=== PATIENT | female | born 1940 | race Caucasian/White ===

== ENCOUNTER → 2017-10-30 08:41 | Outpatient (CLI) | payer MEDICARE, OTHER, SELFPAY ==
--- NOTE | 2017-10-30 08:51 | US_ITS ---
US abdomen limited HISTORY: ORDERING PHYSICIAN: Annette Khan PATIENT AGE: 77 years Comparison: None TECHNIQUE ultrasound right upper quadrant COMPARISON. CT abdomen pelvis 07/12/2016 which previously showed aneurysmal dilatation of lower abdominal aorta. Up to 4.2 cm FINDINGS Pancreas unremarkable. Liver. No significant focal lesion. Some subtle areas of fatty infiltration suggested No biliary ductal dilatation.. Portal vein normal Common duct normal diameter 2.5 mm at hilum of liver. . Gallbladder surgically absent Right kidney. Appears normal 9.4 cm in length. The cortex well-maintained with no hydronephrosis nor mass IMPRESSION 1. Gallbladder surgically absent. Common duct normal diameter. Liver. No significant findings. Perhaps areas of subtle fatty changes Pancreas and Right Kidney unremarkable
== END ==
PROVIDERS: Family Provider Family Medicine; PCP Family Medicine; Visit Provider Nurse Practitioner
DX: R74.8 Abnormal levels of other serum enzymes (principal)
CPT/HCPCS: 76705

== ENCOUNTER → 2017-12-09 13:42 | Outpatient (POV) | payer MEDICARE, OTHER, SELFPAY ==
[2017-12-09 14:48] LABS: Basophils # 0.1 K/mm3 (0-0.2); Basophils % 0.9 % (0.1-2.0); Eosinophils # 0.1 K/mm3 (0.0-0.4); Eosinophils % 1.9 % (0.1-12.0); Hematocrit 34.5 % (37.0-47.0); Hemoglobin 10.8 g/dL (12.2-16.2); Lymphocytes # 2.1 K/mm3 (0.7-4.5); Lymphocytes % 28.9 K/mm3 (10-50); Mean Corpuscular HGB Conc 31.3 g/dL (31.8-35.4); Mean Corpuscular Hemoglobin 26.3 pg (27.0-31.2); Mean Corpuscular Volume 83.9 fl (81-99); Mean Platelet Volume 7.4 fl (7.4-10.4); Monocytes # 0.4 K/mm3 (0.1-1.0); Monocytes % 4.9 % (1.7-9.3); Neutrophils # 4.7 K/mm3 (1.8-7.8); Neutrophils % 63.4 % (37.0-80.0); Platelet Count 396 K/mm3 (142-424); Red Blood Count 4.12 M/mm3 (4.20-5.40); Red Cell Distribution Width 16.9 % (11.5-17.5); White Blood Count 7.5 K/mm3 (4.8-10.8)
[2017-12-09 17:57] LABS: Alanine Aminotransferase 14 U/L (12-78); Albumin Level 3.3 gm/dL (3.4-5.0); Albumin/Globulin Ratio 0.8 (1.1-1.8); Alkaline Phosphatase 119 U/L (46-116); Anion Gap 14.7 mEq/L (5-15); Aspartate Amino Transferase 13 U/L (15-37); Bilirubin,Total 0.4 mg/dL (0.2-1.0); Blood Urea Nitrogen 14 mg/dL (7-18); Calcium 8.9 mg/dL (8.5-10.1); Carbon Dioxide 28 mmol/L (21.0-32.0); Chloride 101 mmol/L (98-107); Creatinine,Serum 0.98 mg/dL (0.55-1.02); Estimated Glomerular Filt Rate 55 ml/min (>60); Ferritin 21 ng/mL (8-388); GFR (African American) 67 ML/MIN (>60); Potassium 3.7 mmoL/L (3.5-5.1); Sodium 140 mmol/L (136-145); Total Protein,Serum 7.3 gm/dL (6.4-8.2)
[2017-12-09 18:17] LABS: Glucose 143 mg/dL (74-106)
[2017-12-11 09:17] LABS: Iron 54 ug/dL (27-139); UIBC 338 ug/dL (118-369)
[2017-12-11 11:33] LABS: Iron Saturation 14 % (15-55); Vitamin B12 279 pg/mL (232-1245); Vitamin D 25 Hydroxy 35.1 ng/mL (30.0-100.0)
== END ==
PROVIDERS: Visit Provider Nurse Practitioner Acute Care
DX: R74.8 Abnormal levels of other serum enzymes (principal); D64.9 Anemia, unspecified
CPT/HCPCS: 36415; 80053; 82607; 82652; 82728; 83540; 83550; 85025

== ENCOUNTER → 2018-01-06 16:53 | Outpatient (CLI) | payer MEDICARE, OTHER, SELFPAY ==
--- NOTE | 2018-01-06 16:56 | MR_ITS ---
MR head/brain wo con Ordering Physician: Annette Khan Patient Age: 77 years: Female HISTORY: ITS.REASON: OTHER VASCULAR HEADACHE, MULTIPLE FALLS Dizziness and falls since Saturday. Severe headache. Pain both sides of head but mainly on right. Sore to touch. HISTORY of neck and back pain. TECHNIQUE: MRI the brain without contrast : Precontrast Multiplanar FLAIR, T1, T2 weighted images along with axial diffusion/ADC imaging performed on 1.5 T. Siemens, MRI. Additional T2*heme sensitive axial sequences also performed COMPARISON :MR brain from October 2010 FINDINGS . Numerous scattered areas abnormal diffusion signal involving peripheral gyri/cortical areas posterior watershed region/posterior right cerebral hemisphere . Findings suggest scattered foci of peripheral cortical ischemia and/or infarct..-. Most likely small peripheral cortical watershed infarcts here. I would note that there is less evident decreased signal on ADC map than I would like to be definitive regarding infarct, thus possibly could reflect ischemia, question possible reversible ischemia or unlikely some other process... A follow-up MRI with brain with contrast to determine the ventral pattern and to further up evaluate may be helpful. These scattered abnormal diffusion foci involve the parietal/occipital region, & temporoparietal junction as well as areas seen extending towards right occipital lobe.. (Diffusion axial image 12-17 ).. Also a single separate area superiorly towards posterior parietal lobe. Axial image 21 Findings reflect reflect numerous small peripheral areas of ischemia/infarcts-rather than a large territorial infarct. Thus as stated with this somewhat unusual pattern suspect watershed type ischemic process affecting the posterior right cerebral hemisphere..... Doubt Embolic foci Possible Reversible Cerebral Basal Vasoconstrictive Syndrome/Migrainous regional Vasospasm considered, particularly given history onset of symptoms with severe headache, along with scalp tenderness overlying this area.. Consider neurology consult. Also the lack of low signal on the ADC may reflect reversible ischemia rather than completed infarct. No acute blood evident on the blood sensitive sequen ... Also note underlying Prominent chronic small vessel deep white matter ischemic gliotic changes cerebral hemispheres bilaterally, which have progressed since 2010. Prominent and fairly confluently white matter high signal is seen surrounding the lateral ventricles, along with with an numerous scattered periventricular and prominent subcortical deep white matter high signal features. These reflect chronic small vessel deep white matter ischemic gliotic changes.. Most prominent confluent signal is seen surrounding the atria of the lateral ventricles.... Also note High signal throughout central leo which likely reflects the small vessel deep white matter ischemic gliotic changes . ... Otherwise Cerebellar hemispheres unremarkable CP angles clear cranial nerve VII and VIII unremarkable IACs unremarkable. No subdural nor extra-axial collection.. No mass effect supratentorial nor infratentorial Paranasal sinuses: Opacification left maxillary sinus with possible large retention cyst here as well. Right maxillary sinus clear.. Opacification of a few, anterior right ethmoid air cells. Noted otherwise paranasal sinuses clear. Orbits unremarkable. Mastoid air cells well-developed. No significant findings . Scalp and skull unremarkable. -----IMPRESSION------- 1.1 . Numerous scattered peripheral cortical diffusion signal foci,. Compatible with numerous areas of cortical infarct and ischemia involving posterior watershed region right cerebral hemisphere... Suggest neurology consultation given this somewhat unusual pattern. Patient m
== END ==
PROVIDERS: PCP Nurse Practitioner; Visit Provider Nurse Practitioner
DX: G44.1 Vascular headache, not elsewhere classified (principal); R29.6 Repeated falls
CPT/HCPCS: 70551

== ENCOUNTER → 2018-01-10 09:01 | Outpatient (CLI) | payer MEDICARE, OTHER, SELFPAY ==
--- NOTE | 2018-01-10 | CI_ITS ---
Cerebrovascular Exam Indications: 434.91 Cerebral artery occlusion unspecified with cerebral infarction. IMPRESSIONS 1. The bilateral vertebral arteries are patent with normal antegrade flow. 2. Study suggests less than 20% stenosis involving the right internal carotid artery and the left internal carotid artery. History: Risk factors: Current tobacco use. Hypertension. Carotid duplex study. Complete study and Doppler flow study including spectral analysis, color and barnes scale imaging. Location: Vascular laboratory. Patient status: Outpatient. Tables: Arterial flow: + +--------+--------+ Location V sys V ed + +--------+--------+ Right CCA - proximal 55cm/s 13.1cm/s + +--------+--------+ Right CCA - distal 61.6cm/s 18.3cm/s + +--------+--------+ Right ECA 95.2cm/s -------- + +--------+--------+ Right ICA - proximal 71.2cm/s 19.2cm/s + +--------+--------+ Right ICA - mid 65.3cm/s 23.6cm/s + +--------+--------+ Right ICA - distal 119cm/s 38.3cm/s + +--------+--------+ Right vertebral 40.9cm/s -------- + +--------+--------+ Left CCA - proximal 67.3cm/s 20.7cm/s + +--------+--------+ Left CCA - distal 60.3cm/s 16.3cm/s + +--------+--------+ Left ECA 76.1cm/s -------- + +--------+--------+ Left ICA - proximal 67.3cm/s 15.7cm/s + +--------+--------+ Left ICA - mid 77.9cm/s 27cm/s + +--------+--------+ Left ICA - distal 86.1cm/s 20cm/s + +--------+--------+ Left vertebral 34.2cm/s -------- + +--------+--------+ Velocity ratios: + + + + + + Right, V sys Right, V ed Left, V sys Left, V ed + + + + + + Max ICA/dist CCA 1.93 2.09 1.43 1.66 + + + + + + (Report amended ) Electronically signed by: Cl Maxwell [id number]
--- NOTE | 2018-01-10 | CA_ITS ---
PROCEDURE: 2-D M-mode and color Doppler study INDICATIONS FOR THE TEST: Chest pain COPD+ Heart Murmur Tobacco Smoking+ Palpitations+ Fatigue Syncope Edema Hypertension Diabetes MellitusPRE Rheumatic Fever SOB BIGGS+Obesity Hyperlipidemia Family History HD Additional History hx of aortic aneurysm PATIENT INFORMATION HEIGHT: 67 WEIGHT: 138 GENDER: Female B/P: 132/84 2-D/M-MODE INTERPRETATION: 2-D MEASUREMENTS OBSERVED VALUES IN CMS Right Ventricular Dimension (RVDd) 2.8 Interventricular Septum (Thickness)(IVsd) 1.3 Left Ventricular Internal Dimensions(LVIDd) 3.7 Left Ventricular Posterior Wall (Thickness)(LVPWd) 1.3 Aortic Root 2.5 Aortic Cusp Separation 2.0 Left Atrial Dimensions (LAD) 2.3 2D 1. Left atrium is mildly enlarged, left ventricle is normal size, mild concentric left ventricular hypertrophy, visually estimated ejection fraction of 55% with no regional wall motion abnormality. 2. The right atrium and right ventricle are normal size and contractility. 3. The aortic valve is minimally thickened and fibrosed, the aortic root is normal size, ascending aorta is not well visualized. 4. The mitral and tricuspid valvular grossly normal. 5. The pulmonic valve is poorly visualized. 6. No significant pericardial effusion noted. DOPPLER INTERROGATION: Doppler interrogation of the aortic, mitral and tricuspid valvular presence of mild mitral and tricuspid regurgitation, tricuspid regurgitation jet velocity is inadequate for calculation of the right ventricular systolic pressure, grade 1 diastolic dysfunction seen with tissue Doppler evidence of raised left atrial pressure. CONCLUSION: 1. Mildly enlarged left atrium, normal left ventricular size, mild concentric left ventricular hypertrophy, visually estimated ejection fraction of 55% with no regional wall motion abnormality, grade 1 diastolic dysfunction seen with tissue Doppler evidence of raised left atrial pressure. 2. Mild mitral and tricuspid regurgitation 3. No significant pericardial effusion noted.
== END ==
PROVIDERS: PCP Family Medicine; Visit Provider Nurse Practitioner
DX: R00.2 Palpitations (principal); R20.2 Paresthesia of skin; I63.81 Other cerebral infarction due to occlusion or stenosis of small artery; R29.6 Repeated falls
CPT/HCPCS: 93306; 93880

== ENCOUNTER → 2018-01-15 09:05 | Outpatient (CLI) | payer MEDICARE, OTHER, SELFPAY ==
--- NOTE | 2018-01-15 09:21 | MR_ITS ---
MR head/brain wo/w con HISTORY: Headaches with dizziness, severe headaches worse on the right side, follow-up abnormal MRI of 01/06/2018. ITS.REASON: TINGLING SENSATION, MULTIPLE FALLS, OTHER CEREBRAL INFARCTION ORDERING PHYSICIAN: Annette Khan PATIENT AGE: 77 years Comparison: None TECHNIQUE: Standard multiplanar multiecho sequences are performed without and with gadolinium enhancement. There is no midline shift or obvious intracranial hemorrhage. Diffuse periventricular and subcortical T2 white matter hyperintensities are once again noted. Previously there were diffusion abnormalities in the right parietal and occipital lobe. These are no longer apparent. Some of these region showed slight decrease ADC signal which now shows some increase signal intensity consistent with subacute infarction. There is however a new area of restricted diffusion involving the medial aspect of the right temporal lobe as seen on series 3.2, image #38 consistent with a small area of acute infarction measuring approximately 14 x 5 mm. Increased T2 signal within the right parieto-occipital lobe in the cortical region as previously described as showing improvement. There is some gyriform enhancement within these areas. This is consistent with subacute infarction with breakdown of blood-brain barrier. No hydrocephalus. The pituitary abdomen unremarkable appearance. There is increased T2 signal in the leo consistent with ischemic gliotic change from microvascular disease. In the upper cervical cord there is severe degenerative disc disease at C3-C4 with 6 mm anterolisthesis of C3. Canal stenosis is present at the superior C4 region at 5 mm with cord compression. IMPRESSION: 1. Overall, the pattern in the right parietal occipital lobe is consistent with watershed infarct evolution. 2. There is a new small area of infarction involving the medial aspect of the right temporal lobe. 3. Extensive white matter changes consistent with ischemic gliotic change from microvascular disease. 4. Severe degenerative disc disease with 6 mm anterolisthesis of C3 on C4 with canal stenosis and mild cord compression. MRI of the cervical spine may provide further evaluation
[2018-01-15 09:27] LABS: Blood Urea Nitrogen 12 mg/dL (7-18); Creatinine,Serum 0.84 mg/dL (0.55-1.02); Estimated Glomerular Filt Rate 66 ml/min (>60); GFR (African American) 80 ML/MIN (>60)
== END ==
PROVIDERS: PCP Nurse Practitioner; Visit Provider Nurse Practitioner
DX: I63.81 Other cerebral infarction due to occlusion or stenosis of small artery (principal); R20.2 Paresthesia of skin; R29.6 Repeated falls; I63.9 Cerebral infarction, unspecified
CPT/HCPCS: 36415; 70553; 82565; 84520; A9576

== ENCOUNTER → 2018-10-16 08:07 | Outpatient (CLI) | payer MEDICARE, OTHER, SELFPAY ==
--- NOTE | 2018-10-16 08:11 | MR_ITS ---
MR head/brain wo con HISTORY: ITS.REASON: MULTIPLE FALLS, DIZZINESS, HX OF STROKE, TIAs, headache ORDERING PHYSICIAN: Annette Khan APRN PATIENT AGE: 78 years Comparison: 01/15/2018 TECHNIQUE: Standard multiplanar multiecho sequences are performed without contrast. FINDINGS: No midline shift, mass effect, intracranial hemorrhage, or hydrocephalus is evident. There is moderate to severe periventricular and subcortical T2 white matter hyperintensity consistent with ischemic gliotic change from microvascular disease. No acute infarction is evident.. The T2 white matter hyperintensity has somewhat progressed since the previous exam. Encephalomalacic changes also developed in the right occipital lobe consistent with an area of old infarction which has also developed since the previous exam. T2 white matter hyperintensity noted within the leo also is consistent with ischemic gliotic change. The cerebellopontine angle, cerebellum, and brainstem are unremarkable. Left maxillary sinus retention cyst is present at 3 cm. There is some fluid within right mastoid sinus. There is a partially empty sella. The optic high as and was unremarkable. There is thinning of the corpus callosum. Images of the cranial cervical junction show canal stenosis in the upper cervical spine with anterolisthesis of C3 on C4. This was better demonstrated on the previous exam and only barely visible on today's study due to the positioning. IMPRESSION: 1. Extensive white matter changes consistent with ischemic gliotic change from microvascular disease which has progressed since the previous exam. 2. Encephalomalacia changes in the right occipital lobe consistent with an old area of infarction. No acute infarction apparent 3. Canal stenosis in the upper cervical spine
== END ==
PROVIDERS: PCP Nurse Practitioner; Visit Provider Nurse Practitioner
DX: R29.6 Repeated falls (principal); R42 Dizziness and giddiness; Z86.73 Personal history of transient ischemic attack (TIA), and cerebral infarction without residual deficits
CPT/HCPCS: 70551

== ENCOUNTER 2018-11-28 10:19 | Inpatient (IN) ==
--- NOTE | 2018-11-28 10:32 | Emergency Department Note ---
ED Disposition Clinical Impression: Anemia Qualifiers: Anemia type: unspecified type Qualified Code(s): D64.9 - Anemia, unspecified Disposition: Admitted as Observation Condition on Discharge: Fair Referrals: Provider,Referral, [Referring] - - Critical Care Critical Care Time: No Attestation: On , the high probability of a clinically significant, sudden or life threatening deterioration of the following system(s) required my full and direct attention, intervention and personal management. The time I documented below is in addition to time spent performing reported procedures but includes the following listed in this critical care notation. Medical Decision Making - Tani Inquiry Pt receiving controlled substance: No Vital Signs: 11/28/18 10:32 11/28/18 10:48 Temperature 98.4 F Temperature Source Oral Pulse Rate [Left Radial] 94 H 88 Respiratory Rate 20 Blood Pressure [Right Arm] 120/78 133/75 Blood Pressure Mean [Right Arm] 92 94 Blood Pressure Source [Right Arm] Automatic Cuff Automatic Cuff Blood Pressure Position [Right Arm] Sitting Sitting 02 Sat by Pulse Oximetry 97 96 Oxygen Delivery Method Room Air Room Air - Lab Data Lab Results 11/28/18 10:00: WBC 11.0 H, RBC 3.87 L, Hgb 7.4 L*, Hct 27.8 L, MCV 71.8 L, MCH 19.0 L, MCHC 26.5 L, RDW 19.4 H, Plt Count 475 H, MPV 7.8, Neut % (Auto) 70.1, Lymph % (Auto) 25.4, [place] % (Auto) 3.8, Eos % (Auto) 0.3, Baso % (Auto) 0.4, Neut # (Auto) 7.7, Lymph # (Auto) 2.8, [place] # (Auto) 0.4, Eos # (Auto) 0.0, Baso # (Auto) 0.0 11/28/18 10:00: Sodium 140, Potassium 4.1, Chloride 100, Carbon Dioxide 31, Anion Gap 13.1, BUN 22 H, Creatinine 0.99, Estimated Creat Clear 51, Estimated GFR 54 L, Est GFR ( Amer) 66, Glucose 123 H, Calcium 8.9, Total Bilirubin 0.4, AST 16, ALT 14, Alkaline Phosphatase 111, Troponin I < 0.02, Total Protein 6.6, Albumin 2.7 L, Globulin 3.9 H, Albumin/Globulin Ratio 0.7 L 11/28/18 10:00: Lipase 80 11/28/18 10:30: Urine Color Yellow, Urine Appearance Clear, Urine pH 6.5, Ur Specific [place] 1.015, Urine Protein Trace, Urine Glucose (UA) Negative, Urine Ketones Negative, Urine Blood Negative, Urine Nitrate Negative, Urine Bilirubin Negative, Urine Urobilinogen 0.2, Ur Leukocyte Esterase Negative, Urine RBC Occasional, Urine WBC Occasional, Ur Squamous Epith Cells 5-10, Urine Bacteria Trace, Urine Mucus 1+ 11/28/18 11:02: Lactate 1.4 11/28/18 11:05: Stool Occult Blood Negative 11/28/18 11:15: Blood Type A Positive, Antibody Screen Negative Result diagrams: 11/28/18 10:00 11/28/18 10:00 Orders (Tests/Meds): ED MEDICATIONS Discontinued Medications Generic Name Dose Route Start Last Admin Trade Name Freq PRN Reason Stop Dose Admin Ioversol 75 ml 11/28/18 12:27 11/28/18 12:28 Rad-Optiray 350 100ml Vial IV 11/28/18 12:28 75 ml ONCE ONE Administration Protocol Sodium Chloride 10 ml 11/28/18 12:27 11/28/18 12:28 Rad-Saline Flush 10ml Syringe IV 11/28/18 12:28 10 ml ONCE ONE Administration ORDERS Category Date Time Status Ferritin Stat Lab 11/28/18 13:21 Ordered Reticulocyte % (Auto) Stat Lab 11/28/18 13:22 Ordered Blood Culture Stat Micro 11/28/18 10:42 Received - Radiology Data #1 Image(s): Chest Image Reviewed: Yes I have reviewed radiologist's interpretation COPD - CT Data CT Scan: Abdomen, Pelvis Time Received: 13:[address] Reviewed: Yes: I have viewed the radiologist's interpretation Findings Narrative: IMPRESSION: Interval increase in size of the infrarenal aortic aneurysm with no evidence of leakage. Moderate diffuse diverticular lower descending and sigmoid colon without evidence of diverticulitis. There is no evidence of renal or ureteral calculi and there is no obstructive uropathy of either kidney. Dictated by: Dr. Juancarlos Vu MD 11/28/2018 12:[address] Juancarlos Vu MD in [place] 11/28/2018 12:57 - ECG Data Tracing #1 EKG interpreted by Usman Brown MD: Rhythm: sinus Rate: 95 [place]: normal Ectopy: none Conduction: normal ST Segment Changes: none T Wave Changes: none Q Waves: none No evidence of acute ischemia or injury - Physician Consults Physician Consulted: Hesham Time: 13:23 Reason -: Admission Comment/Response: In agrees to admit the patient to the hospital. We discussed the patient's clinical information, including history, exam, laboratory and radiology results and ED course. Per hospital procedure, I will write temporary bridge inpatient orders on the patient. Specific orders requested by the admitting physician: Iron studies, transfuse 2 units packed red blood cells Medical Decision Narrative: Prior imaging of AAA: CT IMPRESSION: 1. Diffuse thickening of the wall the stomach which may be seen with gastritis. Neoplasm not entirely excluded. 2. Prominent diverticulum of the head of the pancreas. 3. 4 x 3.5 cm fusiform infrarenal abdominal aortic aneurysm with small saccular component anteriorly. 4. Diverticulosis of the colon without diverticulitis. 5. Other nonacute findings as described above. <Electronically signed by Cl Maxwell MD in [place]> 07/19/16 0924 BONAL / PS AT 1708 US IMPRESSION: Abdominal aortic aneurysm. measures up to maximum of 3.6 cm AP x 3.25 cm wide on today's study. It extends for less than 5 cm in length. Appears Most likely infrarenal <Electronically signed by Neo Aquino MD in [place]> 10/11/15 0749 CRUDO / PS AT 0649 AT 074 CTA head/neck at 03/26/18 negative General Adult HPI - General Chief complaint: Urogenital-Female Stated complaint: Possible UTI Time Seen by Provider: 11/28/18 10:31 - History of Present Illness HPI narrative: Arrives by ambulance. Has multiple complaints. She says she believes she has a urinary tract infection. She has dysuria. 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 States that this began yesterday. She also says that she has been vomiting since yesterday, vomited all night she does not know whether she has had a fever. She says that she gets intermittent sweats for the past couple of weeks. She has chronic abdominal pain for about 10 months. She says she is supposed to see Dr. Bradley. Supposed to have an upper and lower scope in 1 wk. She says that the pain has been constant for the past 2 weeks. Denies diarrhea. Has a history of a AAA. States that she had swelling of her right foot last week. She says that her primary care provider, Vania Harrison put her on one half of a hydrochlorothiazide. It has markedly improved. She has COPD and is chronically short of breath. - Related Data Home Medications Medication Instructions Recorded Confirmed Albuterol Sulfate [Albuterol HFA 1 puff INHALATION Q4-6H PRN 11/28/18 11/28/18 Inhaler] Atenolol [Atenolol 100mg Tab] 100 mg PO DAILY 11/28/18 11/28/18 Duloxetine HCl [Cymbalta] 60 mg PO DAILY 11/28/18 11/28/18 Pantoprazole Sodium [Pantoprazole 20 mg PO DAILY 11/28/18 11/28/18 20mg Tab] dilTIAZem HCl [Diltiazem 60mg 60 mg PO DAILY 11/28/18 11/28/18 12Hr ER Cap] hydroCHLOROthiazide [HCTZ 25mg 25 mg PO DAILY 11/28/18 11/28/18 tab] Allergies Allergy/AdvReac Type Severity Reaction Status Date / Time codeine [CODEINE] Allergy Mild Verified 11/28/18 10:44 morphine [MORPHINE] Allergy Mild Verified 11/28/18 10:44 [facility] History - Hepatitis A Screen Attestation statement:: This patient has been screened for Hepatitis A risk factors. I have reviewed the patient's past medical history: Yes ROS Obtained: Yes All systems reviewed & no additional complaints - Constitutional Constitutional: Reports excessive sweating, Reports weakness - Cardiovascular Cardiovascular: Denies chest pain - Respiratory Respiratory: No cough, Yes dyspnea - Gastrointestinal Gastrointestingal: Reports: abdominal pain, nausea, vomiting. Denies: diarrhea - Genitourinary Female Genitourinary: Reports dysuria - Neurologic Neurologic: Denies headache(s) Physical Exam - General General appearance: alert, in no apparent distress Comment: purse-lipped breathing - Head Head exam: atraumatic, normocephalic - Eye Eye exam: Present: normal appearance, EOMI - ENT ENT exam: Present: mucous membranes moist - Neck Neck exam: Present: normal inspection, trachea midline - Chest Chest inspection: Present: normal inspection, symmetric chest wall rise - Respiratory Respiratory exam: Present: normal lung sounds bilaterally. Absent: respiratory distress - Cardiovascular Cardiovascular exam: Present: regular rate, normal rhythm, normal heart sounds - Abdominal Exam Abdominal exam: Present: soft, tenderness, normal bowel sounds. Absent: distention, guarding, rebound, rigidity Abdominal tenderness: Present: diffuse, mild Comment: RUQ scar. - Rectal Exam Rectal exam: Present: hemorrhoids (external). Absent: black stool, bloody stool, fecal impaction, mass, tenderness - Extremities Exam Extremities exam: Present: other - Neurological Exam Neurological exam: Present: alert, oriented X3, CN II-XII intact. Absent: motor sensory deficit - Psychiatric Psychiatric exam: Present: normal affect, normal mood - Skin Skin exam: Present: warm, dry - Other Other exam information: minimal edema right foot. hyperemia and cyanosis right foot at toes and heel. minimal cyanosis of left toes. normal pedal pulses. patient states appearance of toes is not a new finding, comes and goes.
[2018-11-28 11:00] LABS: Basophils % 0.4 % (0.1-2.0); Eosinophils % 0.3 % (0.1-12.0); Hematocrit 27.8 % (37.0-47.0); Lymphocytes # 2.8 K/mm3 (0.7-4.5); Lymphocytes % 25.4 % (10-50); Mean Corpuscular HGB Conc 26.5 g/dL (31.8-35.4); Mean Corpuscular Volume 71.8 fl (81-99); Mean Platelet Volume 7.8 fl (7.4-10.4); Monocytes # 0.4 K/mm3 (0.1-1.0); Monocytes % 3.8 % (1.7-9.3); Neutrophils # 7.7 K/mm3 (1.8-7.8); Neutrophils % 70.1 % (37.0-80.0); Platelet Count 475 K/mm3 (142-424); Red Blood Count 3.87 M/mm3 (4.20-5.40); Red Cell Distribution Width 19.4 % (11.5-17.5)
[2018-11-28 11:02] LABS: Hemoglobin 7.4 g/dL (12.2-16.2)
[2018-11-28 11:05] LABS: Microscopic, Urine URINE MICROSCOPIC (MICROSCOPIC)
[2018-11-28 11:06] LABS: Appearance,Urine CLEAR (Clear); Bilirubin,Urine Negative (Negative); Blood, Urine Negative (Negative); Color,Urine YELLOW (Yellow); Glucose,Urine (UA) Negative (Negative); Ketones,Urine Negative (Negative); Leukocyte Esterase,Urine Negative (Negative); PH,Urine 6.5 (5.0-8.5); Protein,Urine TRACE (Negative); Specific Gravity, Urine 1.015 (1.005-1.030); Urobilinogen,Urine 0.2 EU/dl (0.2)
[2018-11-28 11:07] LABS: Alanine Aminotransferase 14 U/L (12-78); Albumin Level 2.7 gm/dL (3.4-5.0); Albumin/Globulin Ratio 0.7 (1.1-1.8); Alkaline Phosphatase 111 U/L (46-116); Anion Gap 13.1 mEq/L (5-15); Aspartate Amino Transferase 16 U/L (15-37); Bilirubin,Total 0.4 mg/dL (0.2-1.0); Blood Urea Nitrogen 22 mg/dL (7-18); Calcium 8.9 mg/dL (8.5-10.1); Carbon Dioxide 31 mmol/L (21.0-32.0); Chloride 100 mmol/L (98-107); Globulin 3.9 gm/dl (1.3-3.2); Glucose 123 mg/dL (74-106); Sodium 140 mmol/L (136-145); Total Protein,Serum 6.6 gm/dL (6.4-8.2)
[2018-11-28 11:11] LABS: RBC,Urine Occasional #/hpf (0-3); WBC,Urine Occasional #/hpf (0-3)
[2018-11-28 11:12] LABS: Bacteria,Urine Trace /lpf; Mucus,Urine 1+ /lpf
--- NOTE | 2018-11-28 14:25 | Pharmacy Consult Notes ---
[facility] Pharmacy VTE Monitoring - Patient Demographics Admission date: 11/28/18 Report Date: 11/28/18 Time: 14:25 Allergies/Adverse Reactions: Patient Allergies codeine [CODEINE] Allergy (Mild, Verified 11/28/18 10:44) morphine [MORPHINE] Allergy (Mild, Verified 11/28/18 10:44) Height: 1.6 m Weight: 68.039 kg Patient Problems: Current Active Problems Anemia (Acute) - VTE Risk Labs: VTE Related Lab Results Hgb 7.4 g/dL (12.2-16.2) L* 11/28/18 10:00 Hct 27.8 % (37.0-47.0) L 11/28/18 10:00 Plt Count 475 K/mm3 (142-424) H 11/28/18 10:00 BUN 22 mg/dL (7-18) H 11/28/18 10:00 Creatinine 0.99 mg/dL (0.55-1.02) 11/28/18 10:00 Estimated Creat Clear 51 mL/min (50-200) 11/28/18 10:00 - Prophylaxis VTE Prophylaxis Ordered?: Yes Types of VTE Prophylaxis: TEDS Knee High Location of Applied Device: Bilateral Lower Extremeties - VTE Diagnosis Confirmed Treatment or plan recommended: Continue Current Treatment
--- NOTE | 2018-11-28 17:16 | History & Physical Report ---
*Admission Date: 11/28/18 *Chief complaint: Weakness *History of present illness: 78-year-old female presented to the emergency department today with a less than 24-hour history of illness that began with onset of vomiting. Patient admits emesis was black but blames this on the fact that she had spinach for a prior meal. This morning upon awakening she was too weak to get out of bed. Her daughter became concerned and contacted my office and was advised to call EMS to bring her mother to the emergency department. In the emergency department patient underwent work-up and evaluation. In the past she has been weak like this when she had a urinary tract infection. Urine was not significantly abnormal but patient was found to be anemic with a hemoglobin of 7.4. MCV was microcytic. Patient has apparently been scheduled for an outpatient GI work-up with endoscopy and colonoscopy scheduled for December 08. Decision was made to admit the patient and transfused 2 units of packed red blood cells. The only comparable prior hemoglobin was from 1 year ago when her hemoglobin was above 10 patient denies melena or hematochezia but admits to an orange discoloration of her stools. [facility] History I have reviewed the patient's past medical history: Yes Medical History: Reports:: Aneurysm, Arrhythmia, Hypertension Denies:: Diabetes Mellitus Type 1, Diabetes Mellitus Type 2 *Have you ever received a pneumonia vaccine?: Yes *Have you received a flu vaccine this season?: No Other Medical History: Reports: Anemia, Cataracts Other Surgeries: Yes: Cholecystectomy, Other - *Social History Educational Level: Completed Grade School Smoking Status: Current every day smoker Tobacco Type: cigarettes # Packs/Day (cigarettes): 1 Alcohol Intake: never *Occupational Status:: retired Household Members: children *Travel in the last 8 weeks: None Family Hx:: No significant family history Review of Systems - Constitutional Reports lack of energy, Reports malaise - *Cardiovascular Denies chest pain, Denies chest pain at rest - *Respiratory Denies cough, Denies shortness of breath - *Gastrointestinal Reports abdominal pain, Reports change in stools, Denies belching, Denies bloating - *Neurologic Reports weakness, Denies headache(s) Meds Home Medications Medication Instructions Recorded Confirmed Type Albuterol Sulfate [Albuterol HFA 1 puff INHALATION Q6HP PRN 11/28/18 11/28/18 History Inhaler] Aspirin [Aspirin 81mg EC Tab] 81 mg PO DAILY 11/28/18 11/28/18 History Atenolol [Atenolol 100mg Tab] 200 mg PO DAILY 11/28/18 11/28/18 History Colchicine 0.6 mg PO DAILY 11/28/18 11/28/18 History Duloxetine HCl [Cymbalta] 120 mg PO DAILY 11/28/18 11/28/18 History Gabapentin 1,200 mg PO TID 11/28/18 11/28/18 History Metoclopramide HCl [Metoclopramide 10 mg PO AC 11/28/18 11/28/18 History 10mg Tablet] Omeprazole [Omeprazole 40mg 40 mg PO DAILY 11/28/18 11/28/18 History Capsule] Roflumilast [Daliresp] 500 mcg PO DAILY 11/28/18 11/28/18 History dilTIAZem HCl [Diltiazem 60mg 60 mg PO BID 11/28/18 11/28/18 History 12Hr ER Cap] hydroCHLOROthiazide [HCTZ 25mg 0.5 tab PO DAILY 11/28/18 11/28/18 History tab] predniSONE [Deltasone 20mg 20 mg PO BID 11/28/18 11/28/18 History tablet] Allergies Allergy/AdvReac Type Severity Reaction Status Date / Time codeine [CODEINE] Allergy Mild Verified 11/28/18 10:44 morphine [MORPHINE] Allergy Mild Verified 11/28/18 10:44 Exam Vital signs and Labs for Last 24 Hours: Temp Pulse Resp BP Pulse Ox 98.2 F 78 24 164/65 H 96 11/28/18 16:40 11/28/18 16:40 11/28/18 16:40 11/28/18 16:40 11/28/18 16:40 Laboratory Results - last 24 hr 11/28/18 10:00: WBC 11.0 H, RBC 3.87 L, Hgb 7.4 L*, Hct 27.8 L, MCV 71.8 L, MCH 19.0 L, MCHC 26.5 L, RDW 19.4 H, Plt Count 475 H, MPV 7.8, Neut % (Auto) 70.1, Lymph % (Auto) 25.4, [place] % (Auto) 3.8, Eos % (Auto) 0.3, Baso % (Auto) 0.4, Neut # (Auto) 7.7, Lymph # (Auto) 2.8, [place] # (Auto) 0.4, Eos # (Auto) 0.0, Baso # (Auto) 0.0 11/28/18 10:00: Sodium 140, Potassium 4.1, Chloride 100, Carbon Dioxide 31, Anion Gap 13.1, BUN 22 H, Creatinine 0.99, Estimated Creat Clear 51, Estimated GFR 54 L, Est GFR ( Amer) 66, Glucose 123 H, Calcium 8.9, Total Bilirubin 0.4, AST 16, ALT 14, Alkaline Phosphatase 111, Troponin I < 0.02, Total Protein 6.6, Albumin 2.7 L, Globulin 3.9 H, Albumin/Globulin Ratio 0.7 L 11/28/18 10:00: Lipase 80 11/28/18 10:30: Urine Color Yellow, Urine Appearance Clear, Urine pH 6.5, Ur Specific [place] 1.015, Urine Protein Trace, Urine Glucose (UA) Negative, Urine Ketones Negative, Urine Blood Negative, Urine Nitrate Negative, Urine Bilirubin Negative, Urine Urobilinogen 0.2, Ur Leukocyte Esterase Negative, Urine RBC Occasional, Urine WBC Occasional, Ur Squamous Epith Cells 5-10, Urine Bacteria Trace, Urine Mucus 1+ 11/28/18 11:02: Lactate 1.4 11/28/18 11:05: Stool Occult Blood Negative 11/28/18 11:15: Blood Type A Positive, Antibody Screen Negative, Crossmatch (AHG) See Detail 11/28/18 14:45: Blood Type Confirm A Positive I & O for Last 24 hours: Intake & Output 11/26/18 11/27/18 11/28/18 11/29/18 11:59 11:59 11:59 11:59 Intake Total 0 / 0 Balance 0 / 0 Weight 150 lb 129 lb 9.6 oz - Constitutional no acute distress - *Routine HEENT Exam Head: Present: normocephalic ENT: Present: mucous membranes moist - *Routine Respiratory Exam Present: CTA bilaterally - *Routine Cardiovascular Exam Present: RRR, Normal S1, Normal S2 - *Routine Abdominal Exam Present: soft, normoactive bowel sounds - *Routine Extremities Exam Present: cyanosis Assessment and Plan (1) Anemia Current visit: Yes Status: Acute Qualifiers: Anemia type: iron deficiency Qualified Code(s): D64.9 - Anemia, unspecified Category: Medical Code(s): D64.9 - Anemia, unspecified - Assessment and plan all Dx Assessment and Plan for all problems:: Transfused 2 units of packed red blood cells. We will see how patient response to transfusion. Home medicines have been ordered. Iron deficiency labs have been ordered
[2018-11-28 22:52] LABS: Creatine Kinase 13 U/L (26-192)
[2018-11-29 00:53] LABS: Hematocrit 33.3 % (37.0-47.0)
[2018-11-29 01:45] LABS: Hemoglobin 10.2 g/dL (12.2-16.2)
--- NOTE | 2018-11-29 07:44 | Progress Note ---
Internal Medicine - PN: Subj *Date: 11/29/18 *Time: 07:42 Interval history: Patient has no complaints this morning. She is feeling better since her transfusion of 2 units of packed red blood cells. She did note dyspnea on exertion which is not not new. This was relieved with application of s upplemental oxygen for a short time. Exam Vital signs and Labs for Last 24 Hours: Temp Pulse Resp BP Pulse Ox 98.5 F 87 22 150/101 H 92 L 11/29/18 04:00 11/29/18 04:00 11/29/18 04:00 11/29/18 04:00 11/29/18 04:00 Laboratory Results - last 24 hr 11/28/18 10:00: WBC 11.0 H, RBC 3.87 L, Hgb 7.4 L*, Hct 27.8 L, MCV 71.8 L, MCH 19.0 L, MCHC 26.5 L, RDW 19.4 H, Plt Count 475 H, MPV 7.8, Neut % (Auto) 70.1, Lymph % (Auto) 25.4, [place] % (Auto) 3.8, Eos % (Auto) 0.3, Baso % (Auto) 0.4, Neut # (Auto) 7.7, Lymph # (Auto) 2.8, [place] # (Auto) 0.4, Eos # (Auto) 0.0, Baso # (Auto) 0.0 11/28/18 10:00: Sodium 140, Potassium 4.1, Chloride 100, Carbon Dioxide 31, Anion Gap 13.1, BUN 22 H, Creatinine 0.99, Estimated Creat Clear 51, Estimated GFR 54 L, Est GFR ( Amer) 66, Glucose 123 H, Calcium 8.9, Total Bilirubin 0.4, AST 16, ALT 14, Alkaline Phosphatase 111, Troponin I < 0.02, Total Protein 6.6, Albumin 2.7 L, Globulin 3.9 H, Albumin/Globulin Ratio 0.7 L 11/28/18 10:00: Lipase 80 11/28/18 10:30: Urine Color Yellow, Urine Appearance Clear, Urine pH 6.5, Ur Specific [place] 1.015, Urine Protein Trace, Urine Glucose (UA) Negative, Urine Ketones Negative, Urine Blood Negative, Urine Nitrate Negative, Urine Bilirubin Negative, Urine Urobilinogen 0.2, Ur Leukocyte Esterase Negative, Urine RBC Occasional, Urine WBC Occasional, Ur Squamous Epith Cells 5-10, Urine Bacteria Trace, Urine Mucus 1+ 11/28/18 11:02: Lactate 1.4 11/28/18 11:05: Stool Occult Blood Negative 11/28/18 11:15: Blood Type A Positive, Antibody Screen Negative, Crossmatch (AHG) See Detail 11/28/18 14:45: Blood Type Confirm A Positive 11/28/18 22:16: Total Creatine Kinase 13 L, CK-MB (CK-2) 0.9, CK-MB (CK-2) Rel Index 6.9 H, Troponin I < 0.02 11/29/18 00:36: Hgb 10.2 L D, Hct 33.3 L I & O for Last 24 hours: Intake & Output 11/26/18 11/27/18 11/28/18 11/29/18 11:59 11:59 11:59 11:59 Intake Total 250 / 250 Output Total 600 / 600 Balance -350 / -350 Weight 150 lb 130 lb 5 oz - Constitutional no acute distress - *Routine Respiratory Exam Present: CTA bilaterally - *Routine Cardiovascular Exam Present: RRR - *Routine Abdominal Exam Present: soft, normoactive bowel sounds. Absent: tenderness Assessment and Plan (1) Anemia Current visit: Yes Status: Acute Qualifiers: Anemia type: iron deficiency Qualified Code(s): D64.9 - Anemia, unspecified Category: Medical Code(s): D64.9 - Anemia, unspecified - Assessment and plan all Dx Assessment and Plan for all problems:: Goal is to increase patient's ambulation today. She will need a walker to ambulate. Await morning labs and repeat CBC in a.m. Awaiting iron studies
[2018-11-29 07:55] LABS: Basophils % 0.4 % (0.1-2.0); Eosinophils # 0.1 K/mm3 (0.0-0.4); Eosinophils % 0.6 % (0.1-12.0); Hematocrit 36.1 % (37.0-47.0); Hemoglobin 10.4 g/dL (12.2-16.2); Lymphocytes # 1.6 K/mm3 (0.7-4.5); Lymphocytes % 15.5 % (10-50); Mean Corpuscular HGB Conc 28.7 g/dL (31.8-35.4); Mean Corpuscular Volume 78.9 fl (81-99); Mean Platelet Volume 7.9 fl (7.4-10.4); Monocytes # 0.5 K/mm3 (0.1-1.0); Monocytes % 4.4 % (1.7-9.3); Neutrophils # 8.1 K/mm3 (1.8-7.8); Neutrophils % 79.1 % (37.0-80.0); Platelet Count 341 K/mm3 (142-424); Red Blood Count 4.57 M/mm3 (4.20-5.40); Red Cell Distribution Width 21.8 % (11.5-17.5); White Blood Count 10.3 K/mm3 (4.8-10.8)
--- NOTE | 2018-11-29 12:16 | Electrocardiograph Report ---
APPROVED REPORT Exam: Resting ECG HR:95 bpm ECG Measurements Heart Rate 95 AXES DE 166 P QRSd 70 QRS 49 QT 356 T97 QTc 447 <Conclusion> Normal sinus rhythm Nonspecific T wave abnormality Abnormal ECG Electronically signed by : Beni Valdez, 11/29/2018 12:15:37
[2018-11-30 06:48] LABS: Basophils % 0.3 % (0.1-2.0); Eosinophils # 0.1 K/mm3 (0.0-0.4); Eosinophils % 0.4 % (0.1-12.0); Hematocrit 37.4 % (37.0-47.0); Hemoglobin 10.8 g/dL (12.2-16.2); Lymphocytes # 2.8 K/mm3 (0.7-4.5); Mean Corpuscular Volume 79.4 fl (81-99); Mean Platelet Volume 7.1 fl (7.4-10.4); Monocytes # 0.4 K/mm3 (0.1-1.0); Monocytes % 4.1 % (1.7-9.3); Neutrophils # 7.5 K/mm3 (1.8-7.8); Neutrophils % 69.2 % (37.0-80.0); Platelet Count 356 K/mm3 (142-424); Red Blood Count 4.71 M/mm3 (4.20-5.40); Red Cell Distribution Width 22.5 % (11.5-17.5); White Blood Count 10.9 K/mm3 (4.8-10.8)
--- NOTE | 2018-11-30 07:56 | Discharge Summary ---
General - General Admission date:: 11/28/18 Discharge date: 11/30/18 HPI HPI: 78-year-old female presented to the emergency department today with a less than 24-hour history of illness that began with onset of vomiting. Patient admits emesis was black but blames this on the fact that she had spinach for a prior meal. This morning upon awakening she was too weak to get out of bed. Her daughter became concerned and contacted my office and was advised to call EMS to bring her mother to the emergency department. In the emergency department patient underwent work-up and evaluation. In the past she has been weak like this when she had a urinary tract infection. Urine was not significantly abnormal but patient was found to be anemic with a hemoglobin of 7.4. MCV was microcytic. Patient has apparently been scheduled for an outpatient GI work-up with endoscopy and colonoscopy scheduled for December 08. Decision was made to admit the patient and transfused 2 units of packed red blood cells. The only comparable prior hemoglobin was from 1 year ago when her hemoglobin was above 10 patient denies melena or hematochezia but admits to an orange discoloration of her stools. Hospital Course Hospital Course: Patient was admitted and received 2 units of packed red blood cells with excellent response. Hemoglobin remained above 10 for the remainder of her hospitalization. Labs were drawn regarding iron deficiency and stool was checked for blood. Iron labs have not returned at the time of this dictation. Stool was negative for occult blood. Once patient received her transfusion breathlessness as well as her weakness improved. On November 29 she was able to ambulate with use of a walker and felt like she had returned to baseline. On November 30 patient was discharged home. Objective Vital signs: Temp Pulse Resp BP Pulse Ox 98.3 F 80 18 107/77 L 95 11/30/18 07:38 11/30/18 07:38 11/30/18 07:38 11/30/18 07:38 11/30/18 07:38 Narrative: She looks well and in no distress. She does have notable swelling over the TMJs bilaterally that is nontender. Oropharynx is moist. Lungs are clear. Heart has a regular rate and rhythm Results Labs on day of discharge: Labs from last 24 hours 11/30/18 11/29/18 06:17 06:45 WBC 10.9 H 10.3 RBC 4.71 4.57 Hgb 10.8 L 10.4 L Hct 37.4 36.1 L MCV 79.4 L 78.9 L MCH 23.0 L 22.6 L MCHC 29.0 L 28.7 L RDW 22.5 H 21.8 H Plt Count 356 341 D MPV 7.1 L 7.9 Neut % (Auto) 69.2 79.1 Lymph % (Auto) 26.0 15.5 [place] % (Auto) 4.1 4.4 Eos % (Auto) 0.4 0.6 Baso % (Auto) 0.3 0.4 Neut # (Auto) 7.5 8.1 H Lymph # (Auto) 2.8 1.6 [place] # (Auto) 0.4 0.5 Eos # (Auto) 0.1 0.1 Baso # (Auto) 0.0 0.0 DS: Diagnosis - Discharge Diagnosis (1) Anemia Status: Acute Problem details: Suspected iron deficiency from inadequate dietary intake. Patient will be discharged home with iron supplementation. Follow-up in the office on December 05 at 11 AM Discharge Plan - Patient Discharge Instructions ACTIVITY: Continue current activity DIET: continue same diet Patient Instructions: Iron-Deficiency Anemia, DI for Iron Deficiency Anemia- Adult - Follow up Plan Follow up with: Beni Dahl MD [Primary Care Provider] - 12/05/18 11:00 am Disposition: Home, Self-Jail Medications: Home Medications Medication Instructions Recorded Confirmed Type Albuterol Sulfate [Albuterol HFA 1 puff INHALATION Q6HP PRN 11/28/18 11/28/18 History Inhaler] Aspirin [Aspirin 81mg EC Tab] 81 mg PO DAILY 11/28/18 11/28/18 History Atenolol [Atenolol 100mg Tab] 200 mg PO DAILY 11/28/18 11/28/18 History Colchicine 0.6 mg PO DAILY 11/28/18 11/28/18 History Duloxetine HCl [Cymbalta] 120 mg PO DAILY 11/28/18 11/28/18 History Gabapentin 1,200 mg PO DAILY 11/28/18 11/29/18 History Metoclopramide HCl [Metoclopramide 10 mg PO AC 11/28/18 11/28/18 History 10mg Tablet] Omeprazole [Omeprazole 40mg 40 mg PO DAILY 11/28/18 11/28/18 History Capsule] Roflumilast [Daliresp] 500 mcg PO DAILY 11/28/18 11/28/18 History dilTIAZem HCl [Diltiazem 60mg 60 mg PO BID 11/28/18 11/28/18 History 12Hr ER Cap] hydroCHLOROthiazide [HCTZ 25mg 12.5 mg PO DAILY 11/28/18 11/29/18 History tab] predniSONE [Deltasone 20mg 20 mg PO BID 11/28/18 11/28/18 History tablet] Gabapentin 1,800 mg PO HS 11/29/18 11/29/18 History Ferrous Sulfate [Ferrous Sulfate 325 mg PO DAILY #30 tab 11/30/18 Rx 325mg Tablet] Prescriptions/Medication Reconciliation: New Ferrous Sulfate [Ferrous Sulfate 325mg Tablet] 325 mg PO DAILY #30 tab Continued hydroCHLOROthiazide [HCTZ 25mg tab] 12.5 mg PO DAILY Duloxetine HCl [Cymbalta] 120 mg PO DAILY dilTIAZem HCl [Diltiazem 60mg 12Hr ER Cap] 60 mg PO BID Albuterol Sulfate [Albuterol HFA Inhaler] 1 puff INHALATION Q6HP PRN PRN Reason: Shortness Of Breath Omeprazole [Omeprazole 40mg Capsule] 40 mg PO DAILY Aspirin [Aspirin 81mg EC Tab] 81 mg PO DAILY Roflumilast [Daliresp] 500 mcg PO DAILY Colchicine 0.6 mg PO DAILY Metoclopramide HCl [Metoclopramide 10mg Tablet] 10 mg PO AC Atenolol [Atenolol 100mg Tab] 200 mg PO DAILY Gabapentin 1,200 mg PO DAILY predniSONE [Deltasone 20mg tablet] 20 mg PO BID Gabapentin 1,800 mg PO HS - Problem Reconciliation Problems Reviewed?: Yes
--- NOTE | 2018-11-30 15:38 | Electrocardiograph Report ---
APPROVED REPORT Exam: Resting ECG HR:75 bpm ECG Measurements Heart Rate 75 AXES MN 232 P 61 QRSd 66 QRS -9 QT 352 T94 QTc 393 <Conclusion> Sinus rhythm with 1st degree AV block Inferior infarct, age undetermined late r wave progression Abnormal ECG Electronically signed by : Beni Valdez, 11/30/2018 15:37:55
== END 2018-11-30 09:40 | disposition home or self-care (01) | DRG 812 ==
LOC: ER 10:19 → 2ND 13:29
PROVIDERS: ADMIT Family Medicine; ATTEND Family Medicine
CPT/HCPCS: 36415; 71010; 71045; 74177; 80053; 81001; 82272; 82550; 82553; 83605; 83690; 84484; 85014; 85018; 85025; 86850; 87040; 93005; 99284; G0328; J2405; P9016; Q9967

== ENCOUNTER → 2018-12-08 09:54 | Outpatient (CLI) | payer MEDICARE, OTHER, SELFPAY ==
[2018-12-08 10:18] LABS: Basophils # 0.1 K/mm3 (0-0.2); Basophils % 0.5 % (0.1-2.0); Eosinophils # 0.1 K/mm3 (0.0-0.4); Eosinophils % 0.7 % (0.1-12.0); Hematocrit 37.1 % (37.0-47.0); Hemoglobin 10.5 g/dL (12.2-16.2); Lymphocytes # 2.9 K/mm3 (0.7-4.5); Lymphocytes % 27.5 % (10-50); Mean Corpuscular HGB Conc 28.3 g/dL (31.8-35.4); Mean Platelet Volume 7.3 fl (7.4-10.4); Monocytes # 0.6 K/mm3 (0.1-1.0); Monocytes % 6.1 % (1.7-9.3); Neutrophils # 6.8 K/mm3 (1.8-7.8); Neutrophils % 65.2 % (37.0-80.0); Platelet Count 743 K/mm3 (142-424); Red Blood Count 4.76 M/mm3 (4.20-5.40); Red Cell Distribution Width 24.7 % (11.5-17.5); White Blood Count 10.4 K/mm3 (4.8-10.8)
== END ==
PROVIDERS: Visit Provider Nurse Practitioner
DX: I10 Essential (primary) hypertension (principal)
CPT/HCPCS: 36415; 85025

== ENCOUNTER 2020-01-13 12:33 | Outpatient (CLI) | payer MEDICARE, OTHER, SELFPAY ==
[2020-01-13 13:36] VITALS: BP 129/57; PULSE 76; RESP 18; TEMP 36.3; O2SAT 98
[2020-01-13 14:10] VITALS: BP 151/44; PULSE 71; RESP 18; O2SAT 98
== END 2020-01-13 14:26 | disposition home or self-care (01) ==
LOC: INF 12:36
PROVIDERS: PCP Family Medicine; Visit Provider Family Medicine
DX: D50.9 Iron deficiency anemia, unspecified (principal)
CPT/HCPCS: 96365; J1439

== ENCOUNTER 2020-01-20 12:50 | Outpatient (CLI) | payer MEDICARE, OTHER, SELFPAY ==
[2020-01-20 13:15] VITALS: BP 125/51; PULSE 84; RESP 20; TEMP 36.4; O2SAT 95
[2020-01-20 13:40] VITALS: BP 118/59; PULSE 87; RESP 20; O2SAT 96
== END 2020-01-20 13:40 | disposition home or self-care (01) ==
LOC: INF 12:50
PROVIDERS: Visit Provider Family Medicine
DX: D50.9 Iron deficiency anemia, unspecified (principal)
CPT/HCPCS: 96365; J1439

== ENCOUNTER 2020-02-03 13:15 | Inpatient (IN) | payer MEDICARE, OTHER, SELFPAY ==
[2020-02-03] VITALS (11 sets, daily range): BP systolic 113–139; BP diastolic 49–66; PULSE 57–68; RESP 17–28; TEMP 36.5–36.8; O2SAT 91–98; BMI 16.7; BMI 16.9
--- NOTE | 2020-02-03 13:17 | ECG_ITS ---
APPROVED REPORT Exam: Resting ECG HR:64 bpm ECG Measurements Heart Rate 64 AXES SC 208 P 59 QRSd 86 QRS -20 QT 432 T 65 QTc 445 Conclusion Normal sinus rhythm Normal ECG Electronically signed by : Beni Valdez, 02/08/2020 07:40:34
--- NOTE | 2020-02-03 13:21 | XR_ITS ---
PROCEDURE: XR CHEST PORTABLE CLINICAL HISTORY: short of breath COMPARISON: CR CXR CHEST(2 VIEWS-NOT PORTABLE) from 02/21/2015 CR CXR CHEST(2 VIEWS-NOT PORTABLE) from 03/25/[address] [facility] [address] CHEST W/ CONTRAST from 04/12/2015 CR XR CHEST PORTABLE from 11/28/2018 FINDINGS: The cardiomediastinal silhouette and pulmonary vascularity are within normal limits. There is consolidation in the left lower lobe in the mid to lower lung zone and in the right lower lobe medially and in the right lung base laterally consistent with multi segmental pneumonia. There is a small left pleural effusion. COPD noted. No acute bony abnormalities. IMPRESSION: COPD with multi segmental pneumonia. Dictated by: Cl Maxwell MD 02/03/2020 13:56 Cl Maxwell MD in [place] 02/03/2020 13:56
[2020-02-03 13:45] LABS: Microscopic, Urine URINE MICROSCOPIC (MICROSCOPIC)
--- NOTE | 2020-02-03 13:48 | HMH.EDGENADL ---
ED Disposition Clinical Impression: Pneumonia Qualifiers: Pneumonia type: due to unspecified organism Laterality: left Lung location: lower lobe of lung Qualified Code(s): J18.9 - Pneumonia, unspecified organism Disposition: Admitted As Inpatient Condition on Discharge: Fair Referrals: Beni Dahl MD [Primary Care Provider] - Time of Disposition: 14:37 - Critical Care Critical Care Time: No Attestation: On 02/03/20, the high probability of a clinically significant, sudden or life threatening deterioration of the following system(s) required my full and direct attention, intervention and personal management. The time I documented below is in addition to time spent performing reported procedures but includes the following listed in this critical care notation. Medical Decision Making - Medical Records Medical records reviewed: Yes: I reviewed the patient's medical records. - Tani Inquiry Pt receiving controlled substance: No Vital Signs: 02/03/20 13:32 Temperature 98.2 F Temperature Source Oral Pulse Rate [Right Radial] 64 Respiratory Rate 17 Blood Pressure [Right Arm] 125/60 Blood Pressure Mean [Right Arm] 81 02 Sat by Pulse Oximetry 91 L Oxygen Delivery Method Room Air - Lab Data Lab Results 02/03/20 13:10: Sodium 130 L, Potassium 3.1 L, Chloride 87 L, Carbon Dioxide 39 H, Anion Gap 7.1, BUN 10, Creatinine 0.50 L, Estimated Creat Clear 36, Estimated GFR 119, Est GFR ( Amer) 144, Glucose 105 H, Calcium 8.6, Total Bilirubin 0.4, AST 21, ALT 8 L, Alkaline Phosphatase 329 H, Troponin I < 0.01, Total Protein 6.3, Albumin 2.8 L, Globulin 3.5 H, Albumin/Globulin Ratio 0.8 L 02/03/20 13:10: Lipase 22 L 02/03/20 13:10: NT-Pro-B Natriuret Pep 2270 H 02/03/20 13:10: SARS-CoV-2 IgG Ab (Rapid) Negative, SARS-CoV-2 IgM Ab (Rapid) Negative 02/03/20 13:21: VBG pH 7.53 H, VBG pCO2 41.9, VBG pO2 187.9 H, VBG HCO3 33.8 H, VBG Total CO2 35.1 H, VBG O2 Saturation 99.1 H, VBG Base Excess 11.1 H 02/03/20 13:38: Urine Color Yellow, Urine Appearance Clear, Urine pH 6.5, Ur Specific [place] 1.010, Urine Protein Trace, Urine Glucose (UA) Negative, Urine Ketones Negative, Urine Blood Negative, Urine Nitrate Negative, Urine Bilirubin Negative, Urine Urobilinogen 1.0, Ur Leukocyte Esterase Negative, Urine WBC 3-5, Ur Squamous Epith Cells 3-5 Result diagrams: 02/03/20 13:10 Orders (Tests/Meds): ED MEDICATIONS Generic Name Dose Route Start Last Admin Trade Name Freq PRN Reason Stop Dose Admin Ceftriaxone Sodium 1 gm/ 50 mls @ 100 mls/hr 02/03/20 14:15 02/03/20 14:26 Sodium Chloride IV 02/17/20 14:14 100 mls/hr Q24H SUSANA Administration Protocol Azithromycin 500 mg/ Sodium 250 mls @ 250 mls/hr 02/03/20 14:15 Chloride IV 02/17/20 14:14 Q24H SUSANA Protocol Discontinued Medications Generic Name Dose Route Start Last Admin Trade Name Freq PRN Reason Stop Dose Admin Sodium Chloride 1,000 mls @ 999 mls/hr 02/03/20 13:30 02/03/20 13:57 Sod Chlor 0.9% 1000ml Bag IV 02/03/20 14:30 999 mls/hr .Q1H1M SUSANA Administration ORDERS Category Date Time Status CBC w/Auto Diff [Complete Blood Count Auto Diff] Stat Lab 02/03/20 13:10 Received Lactic Acid Stat Lab 02/03/20 14:03 Ordered Procalcitonin Stat Lab 02/03/20 14:40 Ordered Troponin I Q3H Lab 02/03/20 16:30 Ordered Troponin I Q3H Lab 02/03/20 19:30 Ordered Blood Culture Stat Micro 02/03/20 14:03 Ordered Medical Decision Narrative: In summary this is a 79 year old female with history of COPD and GI bleed presenting the emergency department generalized weakness and malaise. Patient clinically stable on arrival. Vital signs within normal limits. Concern for urinary tract infection, COPD exacerbation, dehydration, malnutrition, anemia. Plan to obtain CBC, CMP, chest x-ray, EKG, troponin profile, urinalysis. CT scan from November 2019 reviewed, no pancreatic or other intra-abdominal masses. Initial laboratory res
[2020-02-03 13:55] LABS: Chloride 87 mmol/L (98-107); Potassium 3.1 mmoL/L (3.5-5.1); Sodium 130 mmol/L (136-145)
[2020-02-03 13:58] LABS: Alanine Aminotransferase 8 U/L (12-78); Albumin Level 2.8 g/dl (3.5-5.0); Albumin/Globulin Ratio 0.8 (1.1-1.8); Alkaline Phosphatase 329 U/L (38-126); Anion Gap 7.1 mEq/L (5-15); Aspartate Amino Transferase 21 U/L (14-36); Bilirubin,Total 0.4 mg/dl (0.2-1.3); Blood Urea Nitrogen 10 mg/dl (7-17); Carbon Dioxide 39 mmol/L (22.0-30.0); Creatinine Clearance Estimated 36 mL/min (50-200); Estimated Glomerular Filt Rate 119 ml/min (>60); GFR (African American) 144 ML/MIN (>60); Globulin 3.5 g/dL (1.3-3.2); Total Protein,Serum 6.3 g/dl (6.3-8.2)
[2020-02-03 13:59] LABS: Calcium 8.6 mg/dl (8.4-10.2); Glucose 105 mg/dl (74-100)
[2020-02-03 13:59] LABS: VBG Base Excess 11.1 mmol/L (-2.4-2.3); VBG HCO3 33.8 mmol/L (23-30); VBG Oxygen Saturation 99.1 % (50-70); VBG PCO2 41.9 mmol/L (35-51); VBG PH 7.53 mmol/L (7.31-7.41); VBG PO2 187.9 mmol/L (28-40); VBG Total CO2 35.1 mmol/L (23-27)
[2020-02-03 14:08] LABS: NT Pro Brain Natriuretic Pep. 2270 pg/mL (0-450)
[2020-02-03 14:10] LABS: Appearance,Urine CLEAR (Clear); Bilirubin,Urine Negative (Negative); Blood, Urine Negative (Negative); Color,Urine YELLOW (Yellow); Glucose,Urine (UA) Negative (Negative); Ketones,Urine Negative (Negative); Leukocyte Esterase,Urine Negative (Negative); Nitrate,Urine Negative (Negative); PH,Urine 6.5 (5.0-8.5); Protein,Urine TRACE (Negative)
[2020-02-03 14:12] LABS: Troponin I < 0.01 ng/ml (0.00-0.034)
[2020-02-03 14:23] LABS: Coronavirus 19 IgG Antibody Negative (Negative); Coronavirus 19 IgM Antibody Negative (Negative)
[2020-02-03 14:34] LABS: Lipase 22 U/L (23-300)
--- NOTE | 2020-02-03 14:39 | PC.NURSE ---
CALL TO DR PATTERSON
[2020-02-03 14:45] LABS: Basophils % 0.2 % (0.1-2.0); Eosinophils # 0.1 K/mm3 (0.0-0.4); Eosinophils % 0.4 % (0.1-12.0); Hematocrit 31.1 % (37.0-47.0); Hemoglobin 9.5 g/dL (12.2-16.2); Lymphocytes # 2.2 K/mm3 (0.7-4.5); Lymphocytes % 15.4 % (10-50); Mean Corpuscular HGB Conc 30.7 g/dL (31.8-35.4); Mean Corpuscular Hemoglobin 25.9 pg (27.0-31.2); Mean Corpuscular Volume 84.4 fl (81-99); Mean Platelet Volume 8.5 fl (7.4-10.4); Monocytes # 0.5 K/mm3 (0.1-1.0); Monocytes % 3.6 % (1.7-9.3); Neutrophils # 11.7 K/mm3 (1.8-7.8); Neutrophils % 80.4 % (37.0-80.0); Platelet Count 837 K/mm3 (142-424); Red Blood Count 3.68 M/mm3 (4.20-5.40); Red Cell Distribution Width 19.5 % (11.5-17.5); White Blood Count 14.6 K/mm3 (4.8-10.8)
[2020-02-03 14:53] LABS: Lactic Acid 0.9 mmol/L (0.7-2.1)
--- NOTE | 2020-02-03 14:54 | PC.NURSE ---
CALLED PT'S DAUGHTER REGARDING PT'S ADMISSION
[2020-02-03 15:19] LABS: Procalcitonin 1.44 ng/mL (0.0-2.0)
--- NOTE | 2020-02-03 15:30 | PC.NURSE ---
REPORT TO IVELISSE BURCIAGA
--- NOTE | 2020-02-03 16:31 | HMH.HP ---
*Admission Date: 02/03/20 *Chief complaint: Weakness *History of present illness: 79-year-old female with history of COPD and hypertension presents to the emergency department with what she reports is 3 to 4 days of malaise with mild nonproductive cough. She denies dyspnea above baseline. She denies fevers and chills. She denies recent travels and has no known COVID-19 exposures. She has had some diffuse chest discomfort which is now localized to her left side. I was contacted today by her daughter who reported the patient's symptoms along with loss of appetite over the last 3 to 4 days. Work-up in the emergency department revealed multisegmental pneumonia with a white blood cell count of 14,000 with only mild decrease in O2 sats to 91%. Patient has been started on IV azithromycin and Rocephin as well as supplemental oxygen and admitted. [facility] History I have reviewed the patient's past medical history: Yes Medical History: Reports:: Aneurysm, Arrhythmia (SVT), Cancer (skin ca leg), Chronic Obstructive Pulmonary Disease (COPD), Hypertension Denies:: Diabetes Mellitus Type 1, Diabetes Mellitus Type 2 *Have you ever received a pneumonia vaccine?: Yes *Have you received a flu vaccine this season?: Yes Other Medical History: Reports: Anemia, Arthritis, Cataracts Other Surgeries: Yes: Cholecystectomy, Hysterectomy-Total, Other - *Social History Smoking Status: Current every day smoker Tobacco Type: cigarettes # Packs/Day (cigarettes): 1 Alcohol Intake: never *Occupational Status:: retired Housing: house Household Members: family *Travel in the last 8 weeks: None Family Hx:: No significant family history Review of Systems - Constitutional Reports anorexia, Reports body ache(s), Reports fatigue, Denies chills, Denies daytime sleepiness, Denies excessive sweating, Denies fever(s) - Eyes Denies blind spots, Denies blurry vision - ENT Denies abnormal hearing, Denies bleeding gums, Denies change in voice, Denies dental pain, Denies ear discharge, Denies ear pain, Denies nosebleed, Denies lip swelling, Denies mouth lesions - *Cardiovascular Reports shortness of breath with activity, Reports irregular heart rhythm, Denies chest pain, Denies chest pain at rest, Denies chest pain with activity, Denies leg pain with activity, Denies excessive sweating - *Respiratory Reports chest congestion, Reports cough, Reports shortness of breath, Reports shortness of breath with activity, Denies change in phlegm color, Denies excessive phlegm production, Denies coughing up blood - *Gastrointestinal Denies abdominal pain, Denies belching, Denies bloating, Denies change in bowel habits, Denies change in stools - *Genitourinary Denies abnormal periods, Denies abnormal vaginal bleeding, Denies absent period - *Musculoskeletal Reports joint pain, Reports back pain, Reports body aches, Denies abnormal walking, Denies decreased muscle mass - Integumentary/Breasts Denies bleeding lesions - *Neurologic Denies dizziness, Denies headache(s), Denies numbness, Denies dizziness Meds Home Medications Medication Instructions Recorded Confirmed Type Albuterol Sulfate [Ventolin HFA 1 puff INHALATION Q6HP PRN 11/28/18 01/20/20 History Inhaler] Aspirin [Aspirin 81mg EC Tab] 81 mg PO DAILY 11/28/18 01/20/20 History Colchicine 0.6 mg PO NEEDED PRN 11/28/18 01/20/20 History Duloxetine HCl [Cymbalta] 120 mg PO DAILY 11/28/18 01/20/20 History Gabapentin 1,200 mg PO DAILY 11/28/18 01/20/20 History Metoclopramide HCl [Metoclopramide 10 mg PO NEEDED PRN 11/28/18 01/20/20 History 10mg Tablet] Roflumilast [Daliresp] 500 mcg PO DAILY 11/28/18 01/20/20 History atenoloL [Atenolol 100mg Tab] 100 mg PO BID 11/28/18 02/03/20 History dilTIAZem HCL [Diltiazem 60mg 60 mg PO BID 11/28/18 01/20/20 History 12Hr ER Cap] hydroCHLOROthiazide [HCTZ 25mg 12.5 mg PO QODHS 11/28/18 01/20/20 History tab] Gabapentin 1,800 mg PO HS 11/29/18 01/20/20 History
--- NOTE | 2020-02-03 16:38 | HMH.PHAINT ---
VERIFIED HOME MEDICATION LIST WITH DR PATTERSON' OFFICE AND [facility]IC [facility]
[2020-02-03 18:35] LABS: Adenovirus,PCR Not Detected (NotDetected); Bordetella Pertussis Not Detected (NotDetected); Chlamydophila Pneumoniae, PCR Not Detected (NotDetected); Coronavirus 19, PCR Not Detected (NotDetected); Coronavirus 229E Not Detected (NotDetected); Coronavirus NL63 Not Detected (NotDetected); Coronavirus OC43 Not Detected (NotDetected); Coronovirus HKU1,PCR Not Detected (NotDetected); Human Metapneumovirus Not Detected (NotDetected); Influenza A, PCR Not Detected (NotDetected); Influenza AH1, 2009 Not Detected (NotDetected); Influenza AH1, PCR Not Detected (NotDetected); Influenza AH3,PCR Not Detected (NotDetected); Influenza B, PCR Not Detected (NotDetected); Mycoplasma Pneumoniae, PCR Not Detected (NotDetected); Parainfluenza 1, PCR Not Detected (NotDetected); Parainfluenza 2, PCR Not Detected (NotDetected); Parainfluenza 3, PCR Not Detected (NotDetected); Parainfluenza 4, PCR Not Detected (NotDetected); Respiratory Syncytial Virus Not Detected (NotDetected); Rhinovirus/Enterovirus Not Detected (NotDetected)
[2020-02-04] VITALS (9 sets, daily range): BP systolic 133–184; BP diastolic 52–75; PULSE 50–77; RESP 16–28; TEMP 36.3–36.9; O2SAT 90–98; BMI 16.9
--- NOTE | 2020-02-04 02:39 | PC.NURSE ---
Pt is alert and oriented x4. Pt noted resting well with eyes closed this shift. Left upper lobe noted with Rhonchi. Right lobe clear t/o upon auscultation. Tolerated 2lnc well with no c/o SOA. Encouraged use of incentive spirometer this shift. pt provided education on correct use of IS. Pt able to demonstrate appropriate use to this RN. Encouraged use Q1H x10 while awake. pt verbalized understanding. Tolerated diet well. Had mild c/o nausea post cough episode this am. Administered Phenergan x1 per MAY thus far. Upon reassessment pt noted resting with eyes closed. Denies productive cough. Remains incontinent of bladder, wears brief. Pt aware of incontinence and able to vocalize to staff when needing to be changed. No edema. Refused teds. VSS. Remains safe. Call light within reach. Will continue to monitor.
--- NOTE | 2020-02-04 03:48 | PC.NURSE ---
Pt states to this RN this am every time I pee it feels like I am peeing a hot knife .
--- NOTE | 2020-02-04 07:00 | XR_ITS ---
PROCEDURE: XR CHEST PORTABLE CLINICAL HISTORY: pneumonia COMPARISON: CR CXR CHEST(2 VIEWS-NOT PORTABLE) from 03/25/[address] CHEST W/ CONTRAST from 04/12/2015 CR XR CHEST PORTABLE from 11/28/2018 CR XR CHEST PORTABLE from 02/03/2020 FINDINGS: The cardiomediastinal silhouette and pulmonary vascularity are within normal limits. Bilateral lower lobe pneumonia left more extensive than right once again noted and appears slightly worse on both sides. Small left pleural effusion also suspected. No acute bony abnormalities. IMPRESSION: Slight worsening bilateral lower lobe pneumonia with small left effusion Dictated by: Cl Maxwell MD 02/04/2020 08:51 Cl Maxwell MD in [place] 02/04/2020 08:51
[2020-02-04 07:27] LABS: Chloride 96 mmol/L (98-107); Sodium 134 mmol/L (136-145)
[2020-02-04 07:29] LABS: Potassium 2.5 mmoL/L (3.5-5.1)
[2020-02-04 07:30] LABS: Anion Gap 5.5 mEq/L (5-15); Blood Urea Nitrogen 4 mg/dl (7-17); Carbon Dioxide 35 mmol/L (22.0-30.0); Creatinine Clearance Estimated 36 mL/min (50-200); Estimated Glomerular Filt Rate 119 ml/min (>60); GFR (African American) 144 ML/MIN (>60)
[2020-02-04 07:31] LABS: Calcium 7.8 mg/dl (8.4-10.2); Glucose 142 mg/dl (74-100); Magnesium 1.6 mg/dl (1.6-2.3)
[2020-02-04 07:32] LABS: Basophils % 0.2 % (0.1-2.0); Eosinophils # 0.1 K/mm3 (0.0-0.4); Eosinophils % 0.3 % (0.1-12.0); Hematocrit 30.6 % (37.0-47.0); Hemoglobin 9.3 g/dL (12.2-16.2); Lymphocytes # 1.3 K/mm3 (0.7-4.5); Lymphocytes % 8.3 % (10-50); Mean Corpuscular HGB Conc 30.3 g/dL (31.8-35.4); Mean Corpuscular Hemoglobin 25.7 pg (27.0-31.2); Mean Corpuscular Volume 84.8 fl (81-99); Mean Platelet Volume 7.6 fl (7.4-10.4); Monocytes # 0.4 K/mm3 (0.1-1.0); Monocytes % 2.7 % (1.7-9.3); Neutrophils # 13.4 K/mm3 (1.8-7.8); Neutrophils % 88.5 % (37.0-80.0); Platelet Count 685 K/mm3 (142-424); Red Blood Count 3.61 M/mm3 (4.20-5.40); Red Cell Distribution Width 19.4 % (11.5-17.5); White Blood Count 15.1 K/mm3 (4.8-10.8)
[2020-02-04 07:35] LABS: MANUAL DIFFERENTIAL MANUAL DIFFERENTIAL (MANUAL DIFF)
--- NOTE | 2020-02-04 07:55 | HMH.ACPN2 ---
Internal Medicine - PN: Subj *Date: 02/04/20 *Time: 07:55 Interval history: Patient complains of nausea this morning. She continues to have mild cough and requires supplemental oxygen. She also admits to feeling weak. Exam Vital signs and Labs for Last 24 Hours: Temp Pulse Resp BP Pulse Ox 97.5 F L 77 16 184/66 H 98 02/04/20 04:00 02/04/20 04:00 02/04/20 04:00 02/04/20 04:00 02/04/20 04:00 Laboratory Results - last 24 hr 02/03/20 13:10: WBC 14.6 H, RBC 3.68 L, Hgb 9.5 L, Hct 31.1 L, MCV 84.4, MCH 25.9 L, MCHC 30.7 L, RDW 19.5 H, Plt Count 837 H, MPV 8.5, Neut % (Auto) 80.4 H, Lymph % (Auto) 15.4, [place] % (Auto) 3.6, Eos % (Auto) 0.4, Baso % (Auto) 0.2, Neut # (Auto) 11.7 H, Lymph # (Auto) 2.2, [place] # (Auto) 0.5, Eos # (Auto) 0.1, Baso # (Auto) 0.0 02/03/20 13:10: Sodium 130 L, Potassium 3.1 L, Chloride 87 L, Carbon Dioxide 39 H, Anion Gap 7.1, BUN 10, Creatinine 0.50 L, Estimated Creat Clear 36, Estimated GFR 119, Est GFR ( Amer) 144, Glucose 105 H, Calcium 8.6, Total Bilirubin 0.4, AST 21, ALT 8 L, Alkaline Phosphatase 329 H, Troponin I < 0.01, Total Protein 6.3, Albumin 2.8 L, Globulin 3.5 H, Albumin/Globulin Ratio 0.8 L 02/03/20 13:10: Lipase 22 L 02/03/20 13:10: NT-Pro-B Natriuret Pep 2270 H 02/03/20 13:10: SARS-CoV-2 IgG Ab (Rapid) Negative, SARS-CoV-2 IgM Ab (Rapid) Negative 02/03/20 13:10: Procalcitonin 1.44 02/03/20 13:21: VBG pH 7.53 H, VBG pCO2 41.9, VBG pO2 187.9 H, VBG HCO3 33.8 H, VBG Total CO2 35.1 H, VBG O2 Saturation 99.1 H, VBG Base Excess 11.1 H 02/03/20 13:38: Urine Color Yellow, Urine Appearance Clear, Urine pH 6.5, Ur Specific [place] 1.010, Urine Protein Trace, Urine Glucose (UA) Negative, Urine Ketones Negative, Urine Blood Negative, Urine Nitrate Negative, Urine Bilirubin Negative, Urine Urobilinogen 1.0, Ur Leukocyte Esterase Negative, Urine WBC 3-5, Ur Squamous Epith Cells 3-5 02/03/20 14:03: Lactate 0.9 02/03/20 18:20: Chlamy pneumoniae PCR Not detected, Adenovirus (PCR) Not detected, B. pertussis DNA (PCR) Not detected, Coronavirus OC43 (PCR) Not detected, Coronavirus HKU1 (PCR) Not detected, Coronavirus 229E (PCR) Not detected, SARS-CoV-2 (PCR) Not detected, Coronavirus NL63 (PCR) Not detected, Human Metapneumovir PCR Not detected, Influenza A (H1) PCR Not detected, Influ A (H1N1/09) PCR Not detected, Influenza A (H3) PCR Not detected, Influenza Type A (PCR) Not detected, Influenza Type B (PCR) Not detected, M. pneumoniae (PCR) Not detected, Parainfluenza 1 (PCR) Not detected, Parainfluenza 2 (PCR) Not detected, Parainfluenza 3 (PCR) Not detected, Parainfluenza 4 (PCR) Not detected, RSV (PCR) Not detected, Entero/Rhino (PCR) Not detected 02/04/20 06:16: WBC 15.1 H, RBC 3.61 L, Hgb 9.3 L, Hct 30.6 L, MCV 84.8, MCH 25.7 L, MCHC 30.3 L, RDW 19.4 H, Plt Count 685 H, MPV 7.6, Neut % (Auto) 88.5 H, Lymph % (Auto) 8.3 L, [place] % (Auto) 2.7, Eos % (Auto) 0.3, Baso % (Auto) 0.2, Neut # (Auto) 13.4 H, Lymph # (Auto) 1.3, [place] # (Auto) 0.4, Eos # (Auto) 0.1, Baso # (Auto) 0.0 02/04/20 06:16: Sodium 134 L, Potassium 2.5 L*, Chloride 96 L, Carbon Dioxide 35 H, Anion Gap 5.5, BUN 4 L D, Creatinine 0.50 L, Estimated Creat Clear 36, Estimated GFR 119, Est GFR ( Amer) 144, Glucose 142 H D, Calcium 7.8 L, Magnesium 1.6 I & O for Last 24 hours: Intake & Output 02/01/20 02/02/20 02/03/20 02/04/20 11:59 11:59 11:59 11:59 Intake Total 1791 / 179 Balance 1791 / 1791 Weight 108 lb 5 oz Narrative: Patient is not in any distress. The lungs continue to have rales primarily in the left base and anterior left chest although rales are now audible in the right base. Heart has a regular rate and rhythm. Abdomen is soft. Extremities have no edema Assessment and Plan (1) Pneumonia Status: Acute Qualifiers: Pneumonia type: due to unspecified organism Laterality: left Lung location: lower lobe of lung Qualified Code(s): J18.9 - Pneumonia, unspecified organism Category: Medical Code(s):
[2020-02-04 08:02] LABS: Lymphocytes % 10 % (10-50); Monocytes % 3 % (2-9); Neutrophils % 87 % (42-76); Platelet Estimate Marked Increase; RBC Morphology Normal; Total Cells Counted 100
[2020-02-04 08:03] LABS: Hypochromasia 2+; Microcytosis 1+
--- NOTE | 2020-02-04 15:04 | PC.NURSE ---
ABX WERE ADMINISTERED PAST DUE R/T ELECTROLYTE INFUSIONS.
--- NOTE | 2020-02-04 15:14 | PC.NURSE ---
SHE IS AO*4, ABLE TO MAKE NEEDS KNOWN TO STAFF, SHE HAS TOLERATED 2L NC WELL O2 SATURATION WNL NO C/O SOA, LUNG SOUNDS ARE DIMINISHED, SHE DENIES PAIN, HAVE ENCOURAGED USE OF IS, TOLERATED DIET WELL WITH NO C/O N/V/D, ABDOMEN IS SOFT AND NON-TENDER, HERAT MONITOR APPLIED R/T IV INFUSION OF K+, SINUS BRADYCARDIA NOTED ON TELEMETRY STRIP, NO NEEDS AT THIS TIME, WILL CONTINUE TO MONITOR.
--- NOTE | 2020-02-04 16:05 | PC.NURSE ---
NOTIFIED MD PATTERSON OF BLOOD CULTURE RESULTS.
[2020-02-04 18:04] LABS: Chloride 93 mmol/L (98-107); Sodium 132 mmol/L (136-145)
[2020-02-04 18:07] LABS: Anion Gap 5.6 mEq/L (5-15); Blood Urea Nitrogen 3 mg/dl (7-17); Calcium 8.2 mg/dl (8.4-10.2); Carbon Dioxide 36 mmol/L (22.0-30.0); Creatinine Clearance Estimated 36 mL/min (50-200); Estimated Glomerular Filt Rate 154 ml/min (>60); GFR (African American) 187 ML/MIN (>60); Glucose 124 mg/dl (74-100)
[2020-02-04 18:16] LABS: Potassium 2.6 mmoL/L (3.5-5.1)
--- NOTE | 2020-02-04 19:28 | PC.NURSE ---
MD PATTERSON CONTACTED REGARDING CRITICAL K+. 3 RUNS OF 20 MEQ ORDERED.
--- NOTE | 2020-02-04 20:10 | PC.NURSE ---
Sputum induced. Pt unable to cough sputum up. Encouraged to cough. Cup left at bedside
[2020-02-05] VITALS (9 sets, daily range): BP systolic 122–161; BP diastolic 59–85; PULSE 50–68; RESP 19–30; TEMP 36.4–36.8; O2SAT 91–98; BMI 16.9
--- NOTE | 2020-02-05 05:34 | PC.NURSE ---
Pt is A&Ox4. Lung sounds appear to have scattered expiratory rhonchi and inspiratory wheezing per auscultation. Pt continues to be on 2-2.5 L NC. Pt has had x2 incontinent BM's this shift. Both BM's were small, with dark brown/black with a mucoid consistency. No other acute changes or complaints at this time. Will continue to monitor.
[2020-02-05 07:11] LABS: Eosinophils % 0.2 % (0.1-12.0); Hematocrit 32.2 % (37.0-47.0); Hemoglobin 9.8 g/dL (12.2-16.2); Lymphocytes # 1.3 K/mm3 (0.7-4.5); Lymphocytes % 7.4 % (10-50); Mean Corpuscular HGB Conc 30.5 g/dL (31.8-35.4); Mean Corpuscular Hemoglobin 26.1 pg (27.0-31.2); Mean Corpuscular Volume 85.4 fl (81-99); Mean Platelet Volume 7.4 fl (7.4-10.4); Monocytes # 0.4 K/mm3 (0.1-1.0); Monocytes % 2.3 % (1.7-9.3); Neutrophils # 15.4 K/mm3 (1.8-7.8); Neutrophils % 89.9 % (37.0-80.0); Platelet Count 708 K/mm3 (142-424); Red Blood Count 3.78 M/mm3 (4.20-5.40); Red Cell Distribution Width 19.9 % (11.5-17.5); White Blood Count 17.2 K/mm3 (4.8-10.8)
[2020-02-05 07:18] LABS: Chloride 92 mmol/L (98-107); Sodium 130 mmol/L (136-145)
--- NOTE | 2020-02-05 07:18 | HMH.ACPN2 ---
Internal Medicine - PN: Subj *Date: 02/05/20 *Time: 07:18 Interval history: Patient remains weak. Her potassium level is remained low and she received additional IV runs of potassium overnight. She is very anxious and would like to be discharged despite her level of weakness. She admits it is due to anxiety and she just feels so nervous being in the hospital. However in regards to her overall strength or her shortness of breath she notes little improvement so far. Blood culture yesterday has raise suspicion about MRSA Exam Vital signs and Labs for Last 24 Hours: Temp Pulse Resp BP Pulse Ox 97.5 F L 60 24 161/72 H 94 L 02/05/20 03:18 02/05/20 04:00 02/05/20 03:18 02/05/20 03:18 02/05/20 03:18 Laboratory Results - last 24 hr 02/04/20 06:16: WBC 15.1 H, RBC 3.61 L, Hgb 9.3 L, Hct 30.6 L, MCV 84.8, MCH 25.7 L, MCHC 30.3 L, RDW 19.4 H, Plt Count 685 H, MPV 7.6, Neut % (Auto) 88.5 H, Lymph % (Auto) 8.3 L, [place] % (Auto) 2.7, Eos % (Auto) 0.3, Baso % (Auto) 0.2, Neut # (Auto) 13.4 H, Lymph # (Auto) 1.3, [place] # (Auto) 0.4, Eos # (Auto) 0.1, Baso # (Auto) 0.0, Total Counted 100, Neutrophils % (Manual) 87 H, Lymphocytes % (Manual) 10, Monocytes % (Manual) 3, Platelet Estimate Marked increase, RBC Morphology Normal, Hypochromasia 2+, Microcytosis 1+ 02/04/20 06:16: Sodium 134 L, Potassium 2.5 L*, Chloride 96 L, Carbon Dioxide 35 H, Anion Gap 5.5, BUN 4 L D, Creatinine 0.50 L, Estimated Creat Clear 36, Estimated GFR 119, Est GFR ( Amer) 144, Glucose 142 H D, Calcium 7.8 L, Magnesium 1.6 02/04/20 17:50: Sodium 132 L, Potassium 2.6 L*, Chloride 93 L, Carbon Dioxide 36 H, Anion Gap 5.6, BUN 3 L, Creatinine 0.40 L, Estimated Creat Clear 36, Estimated GFR 154, Est GFR ( Amer) 187 D, Glucose 124 H, Calcium 8.2 L I & O for Last 24 hours: Intake & Output 02/02/20 02/03/20 02/04/20 02/05/20 11:59 11:59 11:59 11:59 Intake Total 179 / 1791 712 / 712 Balance 1791 / 1791 Weight 108 lb 5 oz 108 lb 3.2 oz Microbiology Reports for the Last 24 Hours: Microbiology 02/03/20 14:21 Blood Blood Culture - Preliminary - Constitutional thin, cachectic - *Routine Respiratory Exam Present: rales (Left and right base), distant breath sounds - *Routine Cardiovascular Exam Present: RRR - *Routine Abdominal Exam Present: soft, normoactive bowel sounds. Absent: tenderness Assessment and Plan (1) Pneumonia Status: Acute Qualifiers: Pneumonia type: due to unspecified organism Laterality: left Lung location: lower lobe of lung Qualified Code(s): J18.9 - Pneumonia, unspecified organism Category: Medical Code(s): J18.9 - Pneumonia, unspecified organism (2) Anemia of chronic disease Status: Acute Category: Medical Code(s): D63.8 - Anemia in other chronic diseases classified elsewhere (3) Essential hypertension Status: Acute Category: Medical Code(s): I10 - Essential (primary) hypertension (4) COPD (chronic obstructive pulmonary disease) Status: Acute Category: Medical Code(s): J44.9 - Chronic obstructive pulmonary disease, unspecified (5) Hypokalemia Status: Acute Category: Medical Code(s): E87.6 - Hypokalemia (6) Hyponatremia Status: Acute Category: Medical Code(s): E87.1 - Hypo-osmolality and hyponatremia (7) Chronic neuropathic pain Status: Acute Category: Medical Code(s): M79.2 - Neuralgia and neuritis, unspecified; G89.29 - Other chronic pain - Assessment and plan all Dx Assessment and Plan for all problems:: 1. Continue cefepime, vancomycin, azithromycin while awaiting blood cultures 2. Continue incentive spirometry. Patient will get out of bed to chair and PT will be consulted today as well and attempt to improve pulmonary toilet 3. Continue to replace potassium intravenously as patient did not tolerate oral potassium very well 4. Patient did complain of frequent urination and while her urine has been clear is likely du
[2020-02-05 07:19] LABS: Potassium 3.8 mmoL/L (3.5-5.1)
[2020-02-05 07:21] LABS: Anion Gap 9.8 mEq/L (5-15); Blood Urea Nitrogen 5 mg/dl (7-17); Carbon Dioxide 32 mmol/L (22.0-30.0); Creatinine Clearance Estimated 36 mL/min (50-200); Estimated Glomerular Filt Rate 154 ml/min (>60); GFR (African American) 187 ML/MIN (>60)
[2020-02-05 07:22] LABS: Calcium 8.2 mg/dl (8.4-10.2); Glucose 112 mg/dl (74-100); Magnesium 1.9 mg/dl (1.6-2.3)
[2020-02-05 07:24] LABS: MANUAL DIFFERENTIAL MANUAL DIFFERENTIAL (MANUAL DIFF)
[2020-02-05 07:48] LABS: Procalcitonin 0.541 ng/mL (0.0-2.0)
--- NOTE | 2020-02-05 07:53 | HMH.PHACONS ---
- Pharmacy Consult Date: 02/05/20 Time: 07:53 Referring provider: DR. PATTERSON Reason for Consult:: VANCOMYCIN DOSING Allergies and ADEs:: Allergies Allergy/AdvReac Type Severity Reaction Status Date / Time codeine [CODEINE] AdvReac Severe Vomiting Verified 02/03/20 17:01 morphine [MORPHINE] AdvReac Severe Vomiting Verified 02/03/20 17:01 Sulfa (Sulfonamide AdvReac Severe Vomiting Verified 02/03/20 17:01 Antibiotics) Home Medications:: Home Medications Medication Instructions Recorded Confirmed Type Albuterol Sulfate [Ventolin HFA 1 puff INHALATION Q6HP PRN 11/28/18 02/03/20 History Inhaler] Aspirin [Aspirin 81mg EC Tab] 81 mg PO DAILY 11/28/18 02/03/20 History Duloxetine HCl [Cymbalta] 120 mg PO DAILY 11/28/18 02/03/20 History Roflumilast [Daliresp] 500 mcg PO DAILY 11/28/18 02/03/20 History atenoloL [Atenolol 100mg Tab] 100 mg PO BID 11/28/18 02/03/20 History dilTIAZem HCL [Diltiazem 60mg 60 mg PO DAILY 11/28/18 02/03/20 History 12Hr ER Cap] hydroCHLOROthiazide [HCTZ 25mg 25 mg PO DAILY 11/28/18 02/03/20 History tab] Gabapentin 1,200 mg PO TID 11/29/18 02/03/20 History Ferrous Sulfate [Ferrous Sulfate 325 mg PO DAILY 01/13/20 02/03/20 History 325mg Tablet] Pantoprazole Sodium 40 mg PO DAILY 01/13/20 02/03/20 History Budesonide/Formoterol Fumarate 2 puffs IH BID 02/03/20 02/03/20 History [Symbicort 160-4.5 Mcg Inhaler] Height: 1.7 m Weight: 49.079 kg Laboratory Results:: Laboratory Results - last 24 hr 02/04/20 06:16: Total Counted 100, Neutrophils % (Manual) 87 H, Lymphocytes % (Manual) 10, Monocytes % (Manual) 3, Platelet Estimate Marked increase, RBC Morphology Normal, Hypochromasia 2+, Microcytosis 1+ 02/04/20 17:50: Sodium 132 L, Potassium 2.6 L*, Chloride 93 L, Carbon Dioxide 36 H, Anion Gap 5.6, BUN 3 L, Creatinine 0.40 L, Estimated Creat Clear 36, Estimated GFR 154, Est GFR ( Amer) 187 D, Glucose 124 H, Calcium 8.2 L 02/05/20 05:53: Procalcitonin 0.541 02/05/20 05:53: Magnesium 1.9 D 02/05/20 05:53: WBC 17.2 H, RBC 3.78 L, Hgb 9.8 L, Hct 32.2 L, MCV 85.4, MCH 26.1 L, MCHC 30.5 L, RDW 19.9 H, Plt Count 708 H, MPV 7.4, Neut % (Auto) 89.9 H, Lymph % (Auto) 7.4 L, [place] % (Auto) 2.3, Eos % (Auto) 0.2, Baso % (Auto) 0.0 L, Neut # (Auto) 15.4 H, Lymph # (Auto) 1.3, [place] # (Auto) 0.4, Eos # (Auto) 0.0, Baso # (Auto) 0.0 02/05/20 05:53: Sodium 130 L, Potassium 3.8 D, Chloride 92 L, Carbon Dioxide 32 H, Anion Gap 9.8, BUN 5 L D, Creatinine 0.40 L, Estimated Creat Clear 36, Estimated GFR 154, Est GFR ( Amer) 187, Glucose 112 H, Calcium 8.2 L Medical History: Reports:: Aneurysm, Arrhythmia (SVT), Cancer (skin ca leg), Chronic Obstructive Pulmonary Disease (COPD), Hypertension Denies:: Diabetes Mellitus Type 1, Diabetes Mellitus Type 2, MRSA Assessment and Plan (1) Pneumonia Status: Acute Qualifiers: Pneumonia type: due to unspecified organism Laterality: left Lung location: lower lobe of lung Qualified Code(s): J18.9 - Pneumonia, unspecified organism Category: Medical Code(s): J18.9 - Pneumonia, unspecified organism (2) Anemia of chronic disease Status: Acute Category: Medical Code(s): D63.8 - Anemia in other chronic diseases classified elsewhere (3) Essential hypertension Status: Acute Category: Medical Code(s): I10 - Essential (primary) hypertension (4) COPD (chronic obstructive pulmonary disease) Status: Acute Category: Medical Code(s): J44.9 - Chronic obstructive pulmonary disease, unspecified (5) Hypokalemia Status: Acute Category: Medical Code(s): E87.6 - Hypokalemia (6) Hyponatremia Status: Acute Category: Medical Code(s): E87.1 - Hypo-osmolality and hyponatremia (7) Chronic neuropathic pain Status: Acute Category: Medical Code(s): M79.2 - Neuralgia and neuritis, unspecified; G89.29 - Other chronic pain - Assessment and plan all Dx Assessment and Plan for all problems:: Pharmacokinetic do
[2020-02-05 08:14] LABS: Lymphocytes % 14 % (10-50); Monocytes % 4 % (2-9); Neutrophils % 80 % (42-76); Total Cells Counted 100
[2020-02-05 08:15] LABS: Anisocytosis 1+; Hypochromasia 1+; Platelet Estimate Marked Increase
--- NOTE | 2020-02-05 14:26 | PC.NURSE ---
Addendum entered by Yuridia Garcia RN 02/05/20 16:48: PT'S URINE HAS A STRONG SMELL WITH YELLOW URINE NOTED IN BRIEF. PT HAS ALSO HAD 4 BMS THUS FAR THAT ARE A MUCOUS LIKE CONSTANCY THAT IS SOFT. NO ODOR NOTED. PT STATES HER BOTTOM IS BURNING DUE TO GOING SO MUCH. MOISTURE BARRIER CREAM APPLIED NEEDED. DR PATTERSON IS AWARE. Original Note: A&OX4. PT HAS TOLERATED 2L NC WELL THROUGHOUT SHIFT. RESPIRATIONS REGULAR AND UNLABORED. FINE CRACKLES NOTED IN BILATERAL BASES. NO COUGH NOTED. HAND DELIVERY ANALYST EQUAL. +2 PULSES NOTED THROUGHOUT. NO EDEMA NOTED. ACTIVE BOWEL SOUNDS HEARD IN ALL 4 QUADRANTS. SOFT AND NONTENDER ABDOMEN. PT HAS HAD TWO BMS. SHE HAS USED THE BEDPAN A FEW TIMES, BUT HAS ALSO BEEN INCONTINENT AT TIMES. SHE HAS BEEN CHANGED NEEDED. PT HAS REPORTED SOB A FEW TIMES THIS SHIFT. SHE RECEIVED A DUONEB ONCE THUS FAR AND STATED IT HELPED. PT REPORTED NAUSEA ONCE AND RECEIVED PHENERGAN. ON REASSESSMENT, PT STATED HER NAUSEA HAD EASED. DAUGHTER CAME TO VISIT FOR A LITTLE WHILE TODAY. NO REPORTS OF PAIN THUS FAR. PT IS CURRENTLY LYING IN BED RESTING. BED IN LOWEST POSITION. CALL LIGHT WITHIN REACH. VSS. WILL CONTINUE TO MONITOR.
[2020-02-05 18:40] LABS: Adenovirus F 40/41, stool Not Detected (NotDetected); Astrovirus Not Detected (NotDetected); Campylobacter Not Detected (NotDetected); Clostridium Difficile A/B, PCR Not Detected (NotDetected); Cryptosporidium Not Detected (NotDetected); Cyclospora Cayetanesis Not Detected (NotDetected); Entamoeba histolytica Not Detected (NotDetected); Enteroaggregative E coli Not Detected (NotDetected); Enteropathogenic E coli Not Detected (NotDetected); Enterotoxigenic E coli Not Detected (NotDetected); Giardia lamblia Not Detected (NotDetected); Norovirus Not Detected (NotDetected); Plesimonas Shigalloides, PCR Not Detected (NotDetected); Rotavirus A Not Detected (NotDetected); Salmonella, PCR Not Detected (NotDetected); Sapovirus Not Detected (NotDetected); Shiga-like toxin E coli Not Detected (NotDetected); Shigella Enterovasive E coli Not Detected (NotDetected); Vibrio Cholerae Not Detected (NotDetected); Vibrio, PCR Not Detected (NotDetected); Yersinia Entercolitica, PCR Not Detected (NotDetected)
[2020-02-06] VITALS (13 sets, daily range): BP systolic 94–151; BP diastolic 49–66; PULSE 64–81; RESP 16–20; TEMP 36.4–36.8; O2SAT 90–100; BMI 16.0
--- NOTE | 2020-02-06 02:41 | PC.NURSE ---
Pt is alert and oriented x4. Pt noted restless for majority of shift. Pt c/o pain in her back. Pain relieved by Tylenol and repositioning in bed. Administered Tylenol x2 thus far this shift. Upon reassessment pt states adequate relief of pain. Pt also c/o persistent nausea this shift. Administered Phenergan x2 thus far this shift. Pt states relief upon reassessment. Multiple loose incontinent bowel movements noted. Pt remains incontinent of bowel and bladder. Adequate urine output, per brief. No edema noted. Refused teds. Tolerated RA well with intermittent periods of SOA when talking. Encouraged use of incentive spirometer this shift Q1H. Bilateral lungs noted diminished upon auscultation. VSS. Remains safe. Call light within reach. Will continue to monitor.
--- NOTE | 2020-02-06 05:17 | PC.NURSE ---
Pt called out to staff stating she needed assistance, as she could not breathe. Upon entering the room, pt noted with pursed lip breathing with HOB elevated and sitting upright in bed. Pt noted to be on 2 lnc with current O2 sat at 97%. Pt continued to state she could not breathe at this time, but continued to ask to go home and for something to drink . This RN gave pt education on not drinking fluids when SOA at this time. Pt continued to ask for soda. Pt drank soda with no struggle for air. With RN at bedside pt noted to calm down. This RN asked if she had a hx of anxiety attacks at home. Pt answered yes, but does not feel like this is an anxiety attack . Requested for RT to administer Duoneb at 0500. Pt tolerating Duoneb well at this time. Will continue to monitor. Pt has requested for humidification to be added to NC due to her nasal passages being extremely dry.
[2020-02-06 05:42] LABS: Basophils % 0.2 % (0.1-2.0); Eosinophils # 0.2 K/mm3 (0.0-0.4); Eosinophils % 1.1 % (0.1-12.0); Hematocrit 32.5 % (37.0-47.0); Lymphocytes # 1.8 K/mm3 (0.7-4.5); Lymphocytes % 10.1 % (10-50); Mean Corpuscular HGB Conc 30.8 g/dL (31.8-35.4); Mean Corpuscular Hemoglobin 25.8 pg (27.0-31.2); Mean Corpuscular Volume 83.9 fl (81-99); Mean Platelet Volume 8.2 fl (7.4-10.4); Monocytes # 0.5 K/mm3 (0.1-1.0); Neutrophils # 15.2 K/mm3 (1.8-7.8); Neutrophils % 85.5 % (37.0-80.0); Red Blood Count 3.88 M/mm3 (4.20-5.40); Red Cell Distribution Width 19.3 % (11.5-17.5); White Blood Count 17.7 K/mm3 (4.8-10.8)
[2020-02-06 05:43] LABS: Platelet Count 743 K/mm3 (142-424)
[2020-02-06 05:44] LABS: MANUAL DIFFERENTIAL MANUAL DIFFERENTIAL (MANUAL DIFF)
[2020-02-06 05:56] LABS: Anion Gap 9.2 mEq/L (5-15); Blood Urea Nitrogen 6 mg/dl (7-17); Calcium 8.5 mg/dl (8.4-10.2); Carbon Dioxide 33 mmol/L (22.0-30.0); Chloride 88 mmol/L (98-107); Creatinine Clearance Estimated 34 mL/min (50-200); Estimated Glomerular Filt Rate 154 ml/min (>60); GFR (African American) 187 ML/MIN (>60); Glucose 94 mg/dl (74-100); Potassium 3.2 mmoL/L (3.5-5.1); Sodium 127 mmol/L (136-145)
[2020-02-06 06:15] LABS: Anisocytosis 2+; Hypochromasia 3+; Lymphocytes % 9 % (10-50); Neutrophils % 85 % (42-76); Platelet Estimate Moderate Increase; Total Cells Counted 100
--- NOTE | 2020-02-06 07:54 | CT_ITS ---
PROCEDURE: CT CHEST W CON Referring Doctor: Beni Dahl Patient Age:79Y CLINICAL HISTORY: worsening pneumonia Smoker COMPARISON: CT [facility] CT CHEST W/ CONTRAST from 04/12/2015 CT ABDPELW/WO CT ABD PELVIS W/WO CONTRAST from 07/12/[address] ABDOMEN PELVIS W CON from 11/28/2018 CR XR CHEST PORTABLE from 02/03/2020 CR XR CHEST PORTABLE from 02/04/2020 TECHNIQUE: 75 cc Isovue 370 IV contrast utilized. No enteric contrast Helical axial images obtained with sagittal and coronal reformats. All CT scans at the facility use one or more dose reduction, viz: automated exposure control, ma/kV adjustment per patient size (including targeted exams where dose is matched to indication, i.e. head), or iterative reconstruction technique. FINDINGS: Today's CT chest is compared to April 2015 CT chest as well as portable CXR studies from 02/02 and 02/04/2020 Areas of pneumonia and atelectasis most evident at left mid and lower lung [place]. LEFT LUNG. Moderate triangular area of dense consolidation-reflecting dense infiltrate and atelectasis at the lingula. Minimal low-density infiltrate continues more superiorly at the left upper lobe . There is also atelectasis and infiltrate just anterior to the major fissure also noted accounting for areas of density here. Minimal fluid along the fissure may also contribute to this the density along the anterior aspect of major fissure . At left lower lobe posteriorly there are areas of dense infiltrate/consolidation and atelectasis involving the posterior basal segments. There is a small to moderate dependent left pleural effusion of overlying the left lower lobe I see no central airway lesion on left nor right RIGHT LUNG of there is a dense area of consolidation just above the right hemidiaphragm at the medial aspect right lower lobe best seen on sagittal image 32, axial 57 of this appears reflect infiltrate along with some atelectasis is there is some volume loss at right lung base but there is also airspace disease seen at the right CP angle . Atelectasis with possible scant minor infiltrate is also seen at the medial aspect right middle lobe anteriorly as well . Two small patchy areas of density at the right apex may reflect small areas of pleural and parenchymal scarring but could not exclude minor foci of current inflammatory changes Pulmonary artery: Was a standard CT chest but the pulmonary arteries are well visualized with no good evidence of pulmonary embolism a generous but normal pulmonary artery. Thoracic aorta: Appears normal caliber with minimal atherosclerotic calcification aortic arch and origin of great vessels but no dissection. Tortuous descending aorta. Heart appears upper normal in size of borderline/mild cardiomegaly but no overt CHF no pericardial effusion Underlying developing emphysematous changes at the lung [place]. The the small 5 mm nodular density at the posterior aspect of right mid lung at superior segment RLL, axial image 37 was seen previously and has not changed appreciably. But similarly a small just over 5 mm nodular density at the periphery of the right upper lobe on axial image 34 appears similar in size the since previous CT chest 2016, Just lateral to this is a somewhat focal area of density which I suspect I favor reflects a small inflammatory focus or nodule seen on axial slice 38 sagittal 27 coronal 59. On the sagittal image there is a small linear calcification leading to this area with question of us if there small small distal airway or less tiny area of cavitation.. This will benefit from follow-up I only the top of patient's abdominal aortic aneurysm is image today.. When compared to july 2016 CT abdomen
--- NOTE | 2020-02-06 07:55 | HMH.ACPN2 ---
Internal Medicine - PN: Subj *Date: 02/06/20 *Time: 07:55 Interval history: Patient has continually complained of worsening shortness of breath over the last 24 hours. O2 sats are generally between 97 and 100% on 2 L/min of oxygen via the nasal cannula. Patient admits to anxiety in the past but does not feel like she is having an anxiety attack currently. Patient continues to be incontinent of urine and stool. She has not had any fevers. Exam Vital signs and Labs for Last 24 Hours: Temp Pulse Resp BP Pulse Ox 98.2 F 68 18 140/63 94 L 02/06/20 04:00 02/06/20 05:18 02/06/20 04:00 02/06/20 04:00 02/06/20 05:18 Laboratory Results - last 24 hr 02/05/20 05:53: Total Counted 100, Neutrophils % (Manual) 80 H, Band Neutrophils % 2.0, Lymphocytes % (Manual) 14, Monocytes % (Manual) 4, Platelet Estimate Marked increase, Hypochromasia 1+, Anisocytosis 1+ 02/06/20 05:25: WBC 17.7 H, RBC 3.88 L, Hgb 10.0 L, Hct 32.5 L, MCV 83.9, MCH 25.8 L, MCHC 30.8 L, RDW 19.3 H, Plt Count 743 H, MPV 8.2, Neut % (Auto) 85.5 H, Lymph % (Auto) 10.1, [place] % (Auto) 3.0, Eos % (Auto) 1.1, Baso % (Auto) 0.2, Neut # (Auto) 15.2 H, Lymph # (Auto) 1.8, [place] # (Auto) 0.5, Eos # (Auto) 0.2, Baso # (Auto) 0.0, Total Counted 100, Neutrophils % (Manual) 85 H, Band Neutrophils % 6.0, Lymphocytes % (Manual) 9 L, Platelet Estimate Moderate increase, Hypochromasia 3+, Anisocytosis 2+ 02/06/20 05:25: Sodium 127 L, Potassium 3.2 L, Chloride 88 L, Carbon Dioxide 33 H, Anion Gap 9.2, BUN 6 L, Creatinine 0.40 L, Estimated Creat Clear 34, Estimated GFR 154, Est GFR ( Amer) 187, Glucose 94, Calcium 8.5 I & O for Last 24 hours: Intake & Output 02/03/20 02/04/20 02/05/20 02/06/20 11:59 11:59 11:59 11:59 Intake Total 1791 / 179 832 / 832 565 / 565 Balance 1791 / 179 832 / 832 565 / 565 Weight 108 lb 5 oz 108 lb 0.424 oz 102 lb 9 oz Microbiology Reports for the Last 24 Hours: Microbiology 02/03/20 14:21 Blood Blood Culture - Preliminary Staphylococcus hominis 02/03/20 14:03 Blood Blood Culture - Preliminary NO GROWTH AFTER 48 HOURS - Constitutional mild distress, thin, cachectic - *Routine HEENT Exam Head: Present: normocephalic Eye: Present: EOMI, PERRL ENT: Present: mucous membranes moist - *Routine Respiratory Exam Present: rales Comments: Bilateral bases - *Routine Cardiovascular Exam Present: RRR - *Routine Abdominal Exam Present: soft, normoactive bowel sounds. Absent: tenderness - *Routine Extremities Exam Absent: cyanosis, clubbing, edema Assessment and Plan (1) Pneumonia Status: Acute Qualifiers: Pneumonia type: due to unspecified organism Laterality: left Lung location: lower lobe of lung Qualified Code(s): J18.9 - Pneumonia, unspecified organism Category: Medical Code(s): J18.9 - Pneumonia, unspecified organism (2) Anemia of chronic disease Status: Acute Category: Medical Code(s): D63.8 - Anemia in other chronic diseases classified elsewhere (3) Essential hypertension Status: Acute Category: Medical Code(s): I10 - Essential (primary) hypertension (4) COPD (chronic obstructive pulmonary disease) Status: Acute Category: Medical Code(s): J44.9 - Chronic obstructive pulmonary disease, unspecified (5) Hypokalemia Status: Acute Category: Medical Code(s): E87.6 - Hypokalemia (6) Hyponatremia Status: Acute Category: Medical Code(s): E87.1 - Hypo-osmolality and hyponatremia (7) Chronic neuropathic pain Status: Acute Category: Medical Code(s): M79.2 - Neuralgia and neuritis, unspecified; G89.29 - Other chronic pain - Assessment and plan all Dx Assessment and Plan for all problems:: 1. CT scan of the chest with contrast today to further assess pneumonia, rule out underlying malignancy, rule out PE 2. Patient will be given a single dose of Xanax this morning as an anxiolytic. 3.
--- NOTE | 2020-02-06 11:39 | HMH.PTEV ---
Physical Therapy Evaluation Rehab PT IP Evaluation Start: 02/05/20 07:39 Freq: ONCE Status: Active Protocol: Document 02/06/20 07:40 MANISH (Rec: 02/06/20 11:39 MANISH [id number]) Subjective/History History History This is the initial IP PT evaluation for Alma Delia Armijo. Pt is a 79 y/o female admitted to [facility] for increased SOA and difficulty w/ ADL's at home. Pt reports she lives in a house w/ daughter and used a walker as AD. Pt reports she does not use supp O2 at home all the time, just when I need it Subjective Subjective No complaints from pt - pt reports willing to get OOB and participate w/ PT. NSG reports pt stable enough to see. Rehab PT IP Eval Objective Appearance Patient Behavior Appropriate,Cooperative Patient Orientation Person,Place,Time,Name, Birthday,Year,Situation Difficulty following instructions none Speech Pattern Clear,Appropriate Ambulation Patient Able to Ambulate Yes Ambulation Observation IP General Gait Pattern Observation Shuffling Step Ambulation Distance (feet) 10 Ambulation Assistive Device Rolling Walker Ambulation Ability Contact Guard/Hand Hold Balance Ability to Arise Able, uses arms to help Sitting Balance Steady, safe Standing Balance Steady, wide stance Dynamic Sitting Balance Ability Good Dynamic Standing Balance Ability Fair Transfers Bed Transfer Ability Supervision/Stand by Chair Transfer Ability Supervision/Stand by Sit to Stand Bed Transfer Ability Minimal x 1 (25% assist) Sit to Stand Chair Transfer Ability Minimal x 1 (25% assist) ROM All Extremities PT ROM Status WFL MMT All Extremities PT MMT WFL Rehab PT IP prob,goals,plan Problems Date of Evaluation: 02/06/20 PT IP Problems Transfers,Gait,Self care, Safety Rehab Potential Rehab Potential Fair Equipment Needs Assistive Devices Rolling / Wheeled Walker Plan PT Intervention Plan Transfers,Gait,Self care, Safety,Therapeutic Exercise PT Plan Frequency BID Duration LOS Discharge Goals Bed Transfer Ability Supervision/Stand by Sit to Stand Chair [place]
--- NOTE | 2020-02-06 17:28 | PC.NURSE ---
Addendum entered by Yuridia Garcia RN 02/06/20 17:35: PT ENCOURAGED TO USE INCENTIVE SPIROMETER 10 TIMES EVERY HOUR WHILE AWAKE. Original Note: A&OX4. PT HAS TOLERATED 2L NC WELL THROUGHOUT SHIFT. RESPIRATIONS REGULAR AND UNLABORED. FINE CRACKLES NOTED IN BILATERAL BASES. DIMINISHED LUNG SOUNDS NOTED THROUGHOUT. HAND LOFTSMAN EQUAL. +2 PULSES NOTED THROUGHOUT. ACTIVE BOWEL SOUNDS HEARD IN ALL 4 QUADRANTS. SOFT AND TENDER ABDOMEN. ABDOMEN WAS DISTENDED THIS AM BUT BETTER SINCE RECEIVING LASIX. CADENA CATHETER WAS INSERTED AND PT TOLERATED WELL. CADENA CATHETER INTACT AT THIS TIME WITH CLEAR YELLOW URINE NOTED. NO KINKS NOTED. PT HAS HAD GREAT RESPONSE TO LASIX. SHE HAD 1900 OUT BY NOON. PT STATES SHE FEELS A LOT BETTER. NO BM THUS FAR. NO REPORTS OF SOB, NAUSEA, OR PAIN. PT HAS BEEN UP TO THE CHAIR FOR EVERY MEAL. SHE TRANSFERS WITH 1 PERSON ASSIST. PHYSICAL THERAPY CAME TO SEE THE PT TODAY. THEY STATED SHE TOLERATED WELL WITH STANDBY TO 1 PERSON ASSIST. PT RECEIVED BATH AND LINEN CHANGE. PT TOLERATED ALL ANTIBIOTICS AND LIQUID MEDICATIONS WELL. PT IS CURRENTLY UP TO THE CHAIR WITH CALL LIGHT WITHIN REACH. BED IN LOWEST POSITION. VSS. WILL CONTINUE TO MONITOR.
[2020-02-07] VITALS (10 sets, daily range): BP systolic 93–124; BP diastolic 49–72; PULSE 80–101; RESP 18–22; TEMP 36.4–36.9; O2SAT 93–98; BMI 16.0
--- NOTE | 2020-02-07 04:52 | PC.NURSE ---
Pt has rested well this shift and has been very pleasant. Pt is A&Ox4. Fine crackles are heard at bilateral lung bases per auscultation. Pt continues to be on 2L NC and is tolerating appropriately with o2 sats between 93-95%. Pt was educated this shift on the importance of using the incentive spirometer hourly while awake. At best, pt reaches 500 on IS. Bowel sounds are active in all 4 quads. No BM noted this shift. Rosas catheter continues to drain clear, yellow urine per gravity. Pt has had no c/o pain, SOA, or anxiety this shift. No other acute changes. Call light within reach. Will continue to monitor.
[2020-02-07 07:04] LABS: Basophils % 0.2 % (0.1-2.0); Eosinophils # 0.1 K/mm3 (0.0-0.4); Eosinophils % 0.6 % (0.1-12.0); Hematocrit 30.6 % (37.0-47.0); Hemoglobin 9.3 g/dL (12.2-16.2); Lymphocytes # 1.6 K/mm3 (0.7-4.5); Lymphocytes % 10.5 % (10-50); Mean Corpuscular HGB Conc 30.3 g/dL (31.8-35.4); Mean Corpuscular Hemoglobin 25.6 pg (27.0-31.2); Mean Corpuscular Volume 84.5 fl (81-99); Mean Platelet Volume 7.6 fl (7.4-10.4); Monocytes # 0.5 K/mm3 (0.1-1.0); Monocytes % 3.4 % (1.7-9.3); Neutrophils # 12.9 K/mm3 (1.8-7.8); Neutrophils % 85.4 % (37.0-80.0); Red Blood Count 3.62 M/mm3 (4.20-5.40); Red Cell Distribution Width 19.1 % (11.5-17.5); White Blood Count 15.1 K/mm3 (4.8-10.8)
[2020-02-07 07:08] LABS: Platelet Count 689 K/mm3 (142-424)
[2020-02-07 07:09] LABS: MANUAL DIFFERENTIAL MANUAL DIFFERENTIAL (MANUAL DIFF)
[2020-02-07 07:10] LABS: Chloride 88 mmol/L (98-107); Potassium 3.1 mmoL/L (3.5-5.1); Sodium 132 mmol/L (136-145)
[2020-02-07 07:13] LABS: Anion Gap 8.1 mEq/L (5-15); Blood Urea Nitrogen 11 mg/dl (7-17); Carbon Dioxide 39 mmol/L (22.0-30.0); Creatinine Clearance Estimated 34 mL/min (50-200); Estimated Glomerular Filt Rate 69 ml/min (>60); GFR (African American) 84 ML/MIN (>60)
[2020-02-07 07:14] LABS: Calcium 8.3 mg/dl (8.4-10.2); Glucose 122 mg/dl (74-100)
[2020-02-07 07:17] LABS: Anisocytosis 2+; Hypochromasia 2+; Lymphocytes % 9 % (10-50); Monocytes % 1 % (2-9); Neutrophils % 87 % (42-76); Platelet Estimate Marked Increase; Total Cells Counted 100
--- NOTE | 2020-02-07 08:30 | HMH.ACPN2 ---
Internal Medicine - PN: Subj *Date: 02/07/20 *Time: 08:30 Interval history: Patient notes improvement in shortness of breath this morning. Nursing staff reports within 3 hours of administration of Lasix yesterday morning patient diuresed 1900 mL. Since that time she has noticed improvement in breathing. Patient's cough remains dry. Effort is weak with incentive spirometry. She remains afebrile. CT scan of the chest showed persistence of patient's pneumonia Exam Vital signs and Labs for Last 24 Hours: Temp Pulse Resp BP Pulse Ox 98.2 F 88 18 108/53 L 95 02/07/20 08:00 02/07/20 08:00 02/07/20 08:00 02/07/20 08:00 02/07/20 08:00 Laboratory Results - last 24 hr 02/07/20 06:27: WBC 15.1 H, RBC 3.62 L, Hgb 9.3 L, Hct 30.6 L, MCV 84.5, MCH 25.6 L, MCHC 30.3 L, RDW 19.1 H, Plt Count 689 H, MPV 7.6, Neut % (Auto) 85.4 H, Lymph % (Auto) 10.5, [place] % (Auto) 3.4, Eos % (Auto) 0.6, Baso % (Auto) 0.2, Neut # (Auto) 12.9 H, Lymph # (Auto) 1.6, [place] # (Auto) 0.5, Eos # (Auto) 0.1, Baso # (Auto) 0.0, Total Counted 100, Neutrophils % (Manual) 87 H, Band Neutrophils % 3.0, Lymphocytes % (Manual) 9 L, Monocytes % (Manual) 1 L, Platelet Estimate Marked increase, Hypochromasia 2+, Anisocytosis 2+ 02/07/20 06:27: Sodium 132 L, Potassium 3.1 L, Chloride 88 L, Carbon Dioxide 39 H, Anion Gap 8.1, BUN 11 D, Creatinine 0.80 D, Estimated Creat Clear 34, Estimated GFR 69, Est GFR ( Amer) 84 D, Glucose 122 H, Calcium 8.3 L I & O for Last 24 hours: Intake & Output 02/04/20 02/05/20 02/06/20 02/07/20 11:59 11:59 11:59 11:59 Intake Total 1792 / 1791 832 / 832 805 / 805 1690 / 1690 Output Total 2225 / 2225 Balance 179 / 1792 832 / 832 805 / 805 -535 / -535 Weight 108 lb 5 oz 108 lb 0.424 oz 102 lb 9 oz 102 lb Microbiology Reports for the Last 24 Hours: Microbiology 02/03/20 14:21 Blood Blood Culture - Preliminary Staphylococcus hominis - Constitutional no acute distress - *Routine Neck Exam Present: supple. Absent: lymphadenopathy - *Routine Respiratory Exam Present: rales (Bibasilar), diminished air movement - *Routine Cardiovascular Exam Present: RRR - *Routine Abdominal Exam Present: soft. Absent: normoactive bowel sounds, tenderness Assessment and Plan (1) Pneumonia Status: Acute Qualifiers: Pneumonia type: due to unspecified organism Laterality: left Lung location: lower lobe of lung Qualified Code(s): J18.9 - Pneumonia, unspecified organism Category: Medical Code(s): J18.9 - Pneumonia, unspecified organism (2) Anemia of chronic disease Status: Acute Category: Medical Code(s): D63.8 - Anemia in other chronic diseases classified elsewhere (3) Essential hypertension Status: Acute Category: Medical Code(s): I10 - Essential (primary) hypertension (4) COPD (chronic obstructive pulmonary disease) Status: Acute Category: Medical Code(s): J44.9 - Chronic obstructive pulmonary disease, unspecified (5) Hypokalemia Status: Acute Category: Medical Code(s): E87.6 - Hypokalemia (6) Hyponatremia Status: Acute Category: Medical Code(s): E87.1 - Hypo-osmolality and hyponatremia (7) Chronic neuropathic pain Status: Acute Category: Medical Code(s): M79.2 - Neuralgia and neuritis, unspecified; G89.29 - Other chronic pain - Assessment and plan all Dx Assessment and Plan for all problems:: 1. Continue cefepime and Levaquin as her white count has finally started to decline 2. Echocardiogram will be ordered for the a.m. due to patient's dyspnea and hypervolemia to rule out underlying LV dysfunction 3. Maintain Rosas catheter for accurate assessment of urine output at this time 4. Adjust administration of potassium supplementation as well as give additional IV runs of potassium today due to hypokalemia from diuretic
--- NOTE | 2020-02-07 14:56 | PC.NURSE ---
RA sat=85%, returned pt to 2L NC
--- NOTE | 2020-02-07 15:07 | PC.NURSE ---
Pt not coughing up anything at this time for sputum sample.
--- NOTE | 2020-02-07 15:29 | PC.NURSE ---
Addendum entered by Yuridia Garcia RN 02/07/20 16:26: PT RECEIVED BED BATH AND LINEN CHANGE THIS SHIFT. Original Note: A&OX4. PT HAS TOLERATED 2L NC WELL THROUGHOUT SHIFT. RESPIRATIONS REGULAR AND UNLABORED. FINE CRACKLES NOTED TO BILATERAL LOWER BASES. DIMINISHED LUNG SOUNDS NOTED THROUGHOUT. NO EDEMA NOTED. HAND BUCKLE ASSEMBLER EQUAL. +2 PULSES NOTED THROUGHOUT. ACTIVE BOWEL SOUNDS HEARD IN ALL 4 QUADRANTS. SOFT AND NONTENDER ABDOMEN. NO BM THUS FAR. CADENA CATHETER IN PLACE WITH CLEAR YELLOW URINE NOTED. NO KINKS NOTED. PT STATES HER WHOLE BODY IS SORE. ONE TYLENOL WAS GIVEN THUS FAR AND SHE STATED IT HELPED. PT RECEIVED 2 BAGS OF K AND TOLERATED WELL. TELE WAS ON WHILE INFUSING AND NSR WAS NOTED. NO REPORTS OF NAUSEA OR SOB. PT HAS BEEN ENCOURAGED TO USE THE INCENTIVE SPIROMETER 10 TIMES EVERY HOUR WHILE AWAKE. PT HAS BEEN UP AT MEAL TIMES. SHE DOES GREAT GETTING TO THE SIDE OF THE BED BY HERSELF AND ONCE UP WITH THE ASSIST OF A WALKER SHE DOES GREAT MANEUVERING TO THE CHAIR BUT, HAS TROUBLE GOING FROM SITTING TO STANDING POSITION. SHE STATES THIS IS NORMAL FOR THE LAST FEW MONTHS. PT IS CURRENTLY LYING IN BED RESTING. BED IN LOWEST POSITION. VSS. WILL CONTINUE TO MONITOR.
[2020-02-08] VITALS (9 sets, daily range): BP systolic 107–114; BP diastolic 44–47; PULSE 70–105; RESP 15–20; TEMP 36.8–37.1; O2SAT 90–95; BMI 16.2
--- NOTE | 2020-02-08 05:30 | PC.NURSE ---
Pt is A&Ox4 and has slept well during the night. Tylenol administered 1x d/t pt feeling sore all over . Pt denies any SOA, dyspnea, or N/V t/o shift. Lungs are diminished and fine crackles noted to bases. Pt continues on 2LPM NC with SaO2 94-96% this shift. Pt denies any productive cough. ABD is soft, non-tender with active bowel sounds, pt had 1 BM this shift that was drk brown, moderate in size, and soft-loose in consistency. Lovenox for VTE. Folefy cath in place draining clear, ylw urine. Pt has voided 700ml thus far. No peripheral pitting edema, pulses 2+. Peripheral IV to RAC is saline locked. VSS, call light within reach, will continue to monitor.
--- NOTE | 2020-02-08 06:52 | P.PN_ITS ---
Internal Medicine - PN: Subj *Date: 02/08/20 *Time: 06:52 Interval history: Patient has no complaints this morning. She feels like her shortness of breath is improved. Rosas catheter remains in place. Exam Vital signs and Labs for Last 24 Hours: Temp Pulse Resp BP Pulse Ox 98.6 F 87 20 114/47 L 90 L 02/08/20 04:00 02/08/20 06:08 02/08/20 04:00 02/08/20 04:00 02/08/20 06:08 Laboratory Results - last 24 hr 02/07/20 06:27: WBC 15.1 H, RBC 3.62 L, Hgb 9.3 L, Hct 30.6 L, MCV 84.5, MCH 25.6 L, MCHC 30.3 L, RDW 19.1 H, Plt Count 689 H, MPV 7.6, Neut % (Auto) 85.4 H, Lymph % (Auto) 10.5, [place] % (Auto) 3.4, Eos % (Auto) 0.6, Baso % (Auto) 0.2, Neut # (Auto) 12.9 H, Lymph # (Auto) 1.6, [place] # (Auto) 0.5, Eos # (Auto) 0.1, Baso # (Auto) 0.0, Total Counted 100, Neutrophils % (Manual) 87 H, Band Neutrophils % 3.0, Lymphocytes % (Manual) 9 L, Monocytes % (Manual) 1 L, Platelet Estimate Marked increase, Hypochromasia 2+, Anisocytosis 2+ 02/07/20 06:27: Sodium 132 L, Potassium 3.1 L, Chloride 88 L, Carbon Dioxide 39 H, Anion Gap 8.1, BUN 11 D, Creatinine 0.80 D, Estimated Creat Clear 34, Estimated GFR 69, Est GFR ( Amer) 84 D, Glucose 122 H, Calcium 8.3 L I & O for Last 24 hours: Intake & Output 02/05/20 02/06/20 02/07/20 02/08/20 11:59 11:59 11:59 11:59 Intake Total 832 / 832 805 / 805 1690 / 1690 1500 / 1500 Output Total 2225 / 2225 1900 / 1900 Balance 832 / 832 805 / 805 -535 / -535 -400 / -400 Weight 108 lb 0.424 oz 102 lb 9 oz 102 lb 103 lb 7 oz - Constitutional no acute distress - *Routine Respiratory Exam Present: rales (Improving right base, persist on the left) - *Routine Cardiovascular Exam Present: RRR - *Routine Abdominal Exam Present: soft Assessment and Plan (1) Pneumonia Status: Acute Qualifiers: Pneumonia type: due to unspecified organism Laterality: left Lung location: lower lobe of lung Qualified Code(s): J18.9 - Pneumonia, unspecified organism Category: Medical Code(s): J18.9 - Pneumonia, unspecified organism (2) Anemia of chronic disease Status: Acute Category: Medical Code(s): D63.8 - Anemia in other chronic diseases classified elsewhere (3) Essential hypertension Status: Acute Category: Medical Code(s): I10 - Essential (primary) hypertension (4) COPD (chronic obstructive pulmonary disease) Status: Acute Category: Medical Code(s): J44.9 - Chronic obstructive pulmonary disease, unspecified (5) Hypokalemia Status: Acute Category: Medical Code(s): E87.6 - Hypokalemia (6) Hyponatremia Status: Acute Category: Medical Code(s): E87.1 - Hypo-osmolality and hyponatremia (7) Chronic neuropathic pain Status: Acute Category: Medical Code(s): M79.2 - Neuralgia and neuritis, unspecified; G89.29 - Other chronic pain - Assessment and plan all Dx Assessment and Plan for all problems:: 1. Await morning labs 2. DC Rosas catheter
[2020-02-08 07:33] LABS: Basophils % 0.2 % (0.1-2.0); Eosinophils # 0.2 K/mm3 (0.0-0.4); Hemoglobin 8.2 g/dL (12.2-16.2); Lymphocytes # 1.9 K/mm3 (0.7-4.5); Lymphocytes % 10.3 % (10-50); Mean Corpuscular HGB Conc 30.5 g/dL (31.8-35.4); Mean Corpuscular Hemoglobin 26.1 pg (27.0-31.2); Mean Corpuscular Volume 85.3 fl (81-99); Mean Platelet Volume 8.2 fl (7.4-10.4); Monocytes # 0.5 K/mm3 (0.1-1.0); Monocytes % 2.7 % (1.7-9.3); Neutrophils # 16.1 K/mm3 (1.8-7.8); Neutrophils % 85.8 % (37.0-80.0); Platelet Count 626 K/mm3 (142-424); Red Blood Count 3.16 M/mm3 (4.20-5.40); Red Cell Distribution Width 18.8 % (11.5-17.5); White Blood Count 18.8 K/mm3 (4.8-10.8)
[2020-02-08 07:40] LABS: Chloride 91 mmol/L (98-107); Sodium 128 mmol/L (136-145)
[2020-02-08 07:42] LABS: MANUAL DIFFERENTIAL MANUAL DIFFERENTIAL (MANUAL DIFF)
[2020-02-08 07:43] LABS: Blood Urea Nitrogen 16 mg/dl (7-17); Calcium 8.1 mg/dl (8.4-10.2); Carbon Dioxide 35 mmol/L (22.0-30.0); Creatinine Clearance Estimated 34 mL/min (50-200); Estimated Glomerular Filt Rate 97 ml/min (>60); GFR (African American) 117 ML/MIN (>60); Glucose 177 mg/dl (74-100)
--- NOTE | 2020-02-08 07:57 | PC.NURSE ---
CADENA CATH REMOVED, 300 ML OF CLEAR YELLOW URINE DRAINED.
[2020-02-08 08:12] LABS: Anion Gap 6.6 mEq/L (5-15); Potassium 4.6 mmoL/L (3.5-5.1)
[2020-02-08 10:08] LABS: Lymphocytes % 8 % (10-50); Monocytes % 1 % (2-9); Neutrophils % 91 % (42-76); Platelet Estimate Marked Increase; RBC Morphology Normal; Total Cells Counted 100
--- NOTE | 2020-02-08 12:19 | P.PN_ITS ---
Internal Medicine - PN: Subj *Date: 02/08/20 *Time: 12:19 Exam Vital signs and Labs for Last 24 Hours: Temp Pulse Resp BP Pulse Ox 98.7 F 81 15 111/44 L 92 L 02/08/20 12:00 02/08/20 12:00 02/08/20 12:00 02/08/20 12:00 02/08/20 12:00 Laboratory Results - last 24 hr 02/08/20 07:03: WBC 18.8 H, RBC 3.16 L, Hgb 8.2 L, Hct 27.0 L, MCV 85.3, MCH 26.1 L, MCHC 30.5 L, RDW 18.8 H, Plt Count 626 H, MPV 8.2, Neut % (Auto) 85.8 H, Lymph % (Auto) 10.3, [place] % (Auto) 2.7, Eos % (Auto) 1.0, Baso % (Auto) 0.2, Neut # (Auto) 16.1 H, Lymph # (Auto) 1.9, [place] # (Auto) 0.5, Eos # (Auto) 0.2, Baso # (Auto) 0.0, Total Counted 100, Neutrophils % (Manual) 91 H, Lymphocytes % (Manual) 8 L, Monocytes % (Manual) 1 L, Platelet Estimate Marked increase, RBC Morphology Normal 02/08/20 07:03: Sodium 128 L, Potassium 4.6 D, Chloride 91 L, Carbon Dioxide 35 H, Anion Gap 6.6, BUN 16 D, Creatinine 0.60 D, Estimated Creat Clear 34, Estimated GFR 97, Est GFR ( Amer) 117 D, Glucose 177 H, Calcium 8.1 L I & O for Last 24 hours: Intake & Output 02/05/20 02/06/20 02/07/20 02/08/20 23:59 23:59 23:59 23:59 Intake Total 515 / 515 1979 / 1979 1620 / 1620 360 / 360 Output Total 1900 / 2225 1525 / 1525 700 / 700 Balance 515 / 515 80 / -245 95 / 95 -340 / -340 Weight 49 kg 46.522 kg 46.266 kg 46.918 kg Assessment and Plan (1) Pneumonia Status: Acute Qualifiers: Pneumonia type: due to unspecified organism Laterality: left Lung location: lower lobe of lung Qualified Code(s): J18.9 - Pneumonia, unspecified organism Category: Medical Code(s): J18.9 - Pneumonia, unspecified organism (2) Anemia of chronic disease Status: Acute Category: Medical Code(s): D63.8 - Anemia in other chronic diseases classified elsewhere (3) Essential hypertension Status: Acute Category: Medical Code(s): I10 - Essential (primary) hypertension (4) COPD (chronic obstructive pulmonary disease) Status: Acute Category: Medical Code(s): J44.9 - Chronic obstructive pulmonary disease, unspecified (5) Hypokalemia Status: Acute Category: Medical Code(s): E87.6 - Hypokalemia (6) Hyponatremia Status: Acute Category: Medical Code(s): E87.1 - Hypo-osmolality and hyponatremia (7) Chronic neuropathic pain Status: Acute Category: Medical Code(s): M79.2 - Neuralgia and neuritis, unspecified; G89.29 - Other chronic pain The patient's infection will respond to the chosen ABx?: Yes Is the patient receiving the right drug, dose, and route?: Yes Could a more targeted ABx be ordered?: No (STAPH HOMINIS BLOOD CULTURE, CONTAMINANT PER MD NOTE 02/06/20.)
--- NOTE | 2020-02-08 14:58 | DIET.NUTRFU ---
Pt with severe protein calorie malnutrition, has been counseled/educated. Improvement in PO intakes over the weekend and today- 56%. Weight stable. Pt states she likes protein supplements on diet order TID.
--- NOTE | 2020-02-08 17:30 | PC.NURSE ---
PT IS AO*4, ABLE TO MAKE NEEDS KNOWN TO STAFF, SHE HAS BEEN MEDICATED WITH TYLENO PER MAY WITH GOOD EFFECTIVENESS NOTED, PT HAS BEEN ADMIN PO REGLAN PER MAY AND HAS NOT C/O V/V/D T/O SHIFT, HER APPETITE HAS IMPROVED, SURINDER CATH WAS D/C TODAY, SHE IS CURRENTLY ON 2LNC FOR O2 SUPPORT, NO C/O SOA O2 SATS WNL, LUNG SOUNDS DIMINISHED T/O, LOVENOX FOR VTE, NO NEEDS AT THIS TIME, WILL CONTINUE TO MONITOR.
[2020-02-09] VITALS: BP 128/55; PULSE 80; RESP 16; TEMP 36.8; O2SAT 92
--- NOTE | 2020-02-09 03:45 | PC.NURSE ---
No acute changes noted. Pt A&O x4. Has rested well this shift. No complaints stated. VSS. Lungs diminished. Remains on 2 L O2 NC. BS active. She has not had any loose stools thus far, however she remains incontinent of urine. Diarrhea panel not resulted. Medication administered per may. Call light within reach. Safety measures in place. Will continue to monitor.
[2020-02-09 04:00] VITALS: BP 119/57; PULSE 77; RESP 16; TEMP 36.9; O2SAT 91
[2020-02-09 05:43] VITALS: BMI 16.2
[2020-02-09 05:56] VITALS: PULSE 71; PULSE 78; O2SAT 94
[2020-02-09 06:40] LABS: Basophils # 0.1 K/mm3 (0-0.2); Basophils % 0.3 % (0.1-2.0); Eosinophils # 0.2 K/mm3 (0.0-0.4); Eosinophils % 1.2 % (0.1-12.0); Hematocrit 27.4 % (37.0-47.0); Hemoglobin 8.2 g/dL (12.2-16.2); Lymphocytes # 1.8 K/mm3 (0.7-4.5); Lymphocytes % 9.8 % (10-50); Mean Corpuscular Volume 86.6 fl (81-99); Mean Platelet Volume 8.4 fl (7.4-10.4); Monocytes # 0.5 K/mm3 (0.1-1.0); Monocytes % 2.5 % (1.7-9.3); Neutrophils # 15.4 K/mm3 (1.8-7.8); Neutrophils % 86.2 % (37.0-80.0); Platelet Count 610 K/mm3 (142-424); Red Blood Count 3.16 M/mm3 (4.20-5.40); Red Cell Distribution Width 18.6 % (11.5-17.5); White Blood Count 17.8 K/mm3 (4.8-10.8)
[2020-02-09 06:46] LABS: Chloride 90 mmol/L (98-107); MANUAL DIFFERENTIAL MANUAL DIFFERENTIAL (MANUAL DIFF); Potassium 4.7 mmoL/L (3.5-5.1); Sodium 128 mmol/L (136-145)
[2020-02-09 06:49] LABS: Blood Urea Nitrogen 17 mg/dl (7-17); Creatinine Clearance Estimated 34 mL/min (50-200); Estimated Glomerular Filt Rate 97 ml/min (>60); GFR (African American) 117 ML/MIN (>60)
[2020-02-09 06:50] LABS: Anion Gap 7.7 mEq/L (5-15); Calcium 8.2 mg/dl (8.4-10.2); Carbon Dioxide 35 mmol/L (22.0-30.0); Glucose 105 mg/dl (74-100)
--- NOTE | 2020-02-09 07:42 | HMH.ACPN2 ---
Internal Medicine - PN: Subj *Date: 02/09/20 *Time: 07:42 Interval history: Patient has no complaints this morning and reports she feels better this morning than she did yesterday. She denies any significant shortness of breath or cough. Exam Vital signs and Labs for Last 24 Hours: Temp Pulse Resp BP Pulse Ox 98.4 F 78 16 119/57 L 94 L 02/09/20 04:00 02/09/20 05:56 02/09/20 04:00 02/09/20 04:00 02/09/20 05:56 Laboratory Results - last 24 hr 02/05/20 18:00: Stl Aeromonas (PCR) Not detected, Stl C. cayetanensis PCR Not detected, Stool Rotavirus (PCR) Not detected, Stl Adenov F 40/41 PCR Not detected, Stool Astrovirus (PCR) Not detected, Stool Campylobacter PCR Not detected, Stl C.difficile Tox PCR Not detected, Stool Cryptosporidium PCR Not detected, Stl E.coli Shiga Tox PCR Not detected, Stool E coli O157 PCR Not detected, Stl Enterotoxigenic E PCR Not detected, Stool EPEC (PCR) Not detected, Stool EAEC (PCR) Not detected, Stl E. histolytica PCR Not detected, Stool Giardia Lamblia PCR Not detected, Stool Salmonella PCR Not detected, Stool Sapovirus (PCR) Not detected, Stl P. shigelloides PCR Not detected, Stl Shigella/EIEC PCR Not detected, St Y.enterocolitica PCR Not detected, Stool Vibrio (PCR) Not detected, Stl Vibrio cholerae PCR Not detected, Stl Norovirus GI/GII PCR Not detected 02/08/20 07:03: WBC 18.8 H, RBC 3.16 L, Hgb 8.2 L, Hct 27.0 L, MCV 85.3, MCH 26.1 L, MCHC 30.5 L, RDW 18.8 H, Plt Count 626 H, MPV 8.2, Neut % (Auto) 85.8 H, Lymph % (Auto) 10.3, [place] % (Auto) 2.7, Eos % (Auto) 1.0, Baso % (Auto) 0.2, Neut # (Auto) 16.1 H, Lymph # (Auto) 1.9, [place] # (Auto) 0.5, Eos # (Auto) 0.2, Baso # (Auto) 0.0, Total Counted 100, Neutrophils % (Manual) 91 H, Lymphocytes % (Manual) 8 L, Monocytes % (Manual) 1 L, Platelet Estimate Marked increase, RBC Morphology Normal 02/08/20 07:03: Sodium 128 L, Potassium 4.6 D, Chloride 91 L, Carbon Dioxide 35 H, Anion Gap 6.6, BUN 16 D, Creatinine 0.60 D, Estimated Creat Clear 34, Estimated GFR 97, Est GFR ( Amer) 117 D, Glucose 177 H, Calcium 8.1 L 02/09/20 06:10: WBC 17.8 H, RBC 3.16 L, Hgb 8.2 L, Hct 27.4 L, MCV 86.6, MCH 26.0 L, MCHC 30.0 L, RDW 18.6 H, Plt Count 610 H, MPV 8.4, Neut % (Auto) 86.2 H, Lymph % (Auto) 9.8 L, [place] % (Auto) 2.5, Eos % (Auto) 1.2, Baso % (Auto) 0.3, Neut # (Auto) 15.4 H, Lymph # (Auto) 1.8, [place] # (Auto) 0.5, Eos # (Auto) 0.2, Baso # (Auto) 0.1 02/09/20 06:10: Sodium 128 L, Potassium 4.7, Chloride 90 L, Carbon Dioxide 35 H, Anion Gap 7.7, BUN 17, Creatinine 0.60, Estimated Creat Clear 34, Estimated GFR 97, Est GFR ( Amer) 117, Glucose 105 H D, Calcium 8.2 L I & O for Last 24 hours: Intake & Output 02/06/20 02/07/20 02/08/20 02/09/20 11:59 11:59 11:59 11:59 Intake Total 805 / 805 1690 / 1690 1860 / 1860 360 / 360 Output Total 2225 / 2225 1900 / 1900 Balance 805 / 805 -535 / -535 -40 / -40 360 / 360 Weight 102 lb 9 oz 102 lb 103 lb 7 oz 103 lb 7 oz Microbiology Reports for the Last 24 Hours: Microbiology 02/03/20 14:03 Blood Blood Culture - Final NO GROWTH AFTER 5 DAYS Narrative: Patient appears comfortable. No respiratory distress. Heart has a regular rate and rhythm. Lungs continue to have bibasilar rales. Extremities are without edema. Echocardiogram shows ejection fraction of 55% Assessment and Plan (1) Pneumonia Status: Acute Qualifiers: Pneumonia type: due to unspecified organism Laterality: left Lung location: lower lobe of lung Qualified Code(s): J18.9 - Pneumonia, unspecified organism Category: Medical Code(s): J18.9 - Pneumonia, unspecified organism (2) Anemia of chronic disease Status: Acute Category: Medical Code(s): D63.8 - Anemia in other chronic diseases classified elsewhere (3) Essential hypertension Status: Acute Category: Medical Code(s): I10 - Essential (primary) hypertension (4) COPD (chronic obstructive pulmonary disease) Status:
--- NOTE | 2020-02-09 07:53 | HMH.DCSUM ---
General - General Admission date:: 02/03/20 Discharge date: 02/09/20 HPI HPI: 79-year-old female with history of COPD and hypertension presents to the emergency department with what she reports is 3 to 4 days of malaise with mild nonproductive cough. She denies dyspnea above baseline. She denies fevers and chills. She denies recent travels and has no known COVID-19 exposures. She has had some diffuse chest discomfort which is now localized to her left side. I was contacted today by her daughter who reported the patient's symptoms along with loss of appetite over the last 3 to 4 days. Work-up in the emergency department revealed multisegmental pneumonia with a white blood cell count of 14,000 with only mild decrease in O2 sats to 91%. Patient has been started on IV azithromycin and Rocephin as well as supplemental oxygen and admitted. Hospital Course Hospital Course: Patient was admitted and placed on Rocephin and azithromycin for her community-acquired pneumonia. White count increased daily and adjustments were made to antibiotics and ultimately they were changed to cefepime and Levaquin. Patient's also improvement in white count with this combination but more importantly had improvement in breathlessness and malaise. Patient was continued on this regimen until the day of discharge. Regarding her physical exam patient had persistent bibasilar rales. Echocardiogram was performed which showed a normal ejection fraction. Patient did become breathless after 2 days of hospitalization and IV fluids were discontinued and she was given a single dose of Lasix with excellent response both from a diuresis standpoint as well as improvement in her breathlessness. Patient was kept on home medicines while admitted. Initially patient's duloxetine and gabapentin were held although patient seemed to have some mild withdrawal symptoms of increased anxiety on these medicines and they were restarted. On February 08 patient was discharged to home and will follow-up in the office on February 11 Objective Vital signs: Temp Pulse Resp BP Pulse Ox 98.4 F 78 16 119/57 L 94 L 02/09/20 04:00 02/09/20 05:56 02/09/20 04:00 02/09/20 04:00 02/09/20 05:56 Results Labs on day of discharge: Labs from last 24 hours 02/09/20 02/09/20 02/08/20 06:10 06:10 07:03 WBC 17.8 H RBC 3.16 L Hgb 8.2 L Hct 27.4 L MCV 86.6 MCH 26.0 L MCHC 30.0 L RDW 18.6 H Plt Count 610 H MPV 8.4 Neut % (Auto) 86.2 H Lymph % (Auto) 9.8 L [place] % (Auto) 2.5 Eos % (Auto) 1.2 Baso % (Auto) 0.3 Neut # (Auto) 15.4 H Lymph # (Auto) 1.8 [place] # (Auto) 0.5 Eos # (Auto) 0.2 Baso # (Auto) 0.1 Total Counted Neutrophils % (Manual) Lymphocytes % (Manual) Monocytes % (Manual) Platelet Estimate RBC Morphology Sodium 128 L Potassium 4.7 4.6 D Chloride 90 L Carbon Dioxide 35 H Anion Gap 7.7 6.6 BUN 17 Creatinine 0.60 Estimated Creat Clear 34 Estimated GFR 97 Est GFR ( Amer) 117 Glucose 105 H D Calcium 8.2 L Stl Aeromonas (PCR) Stl C. cayetanensis PCR Stool Rotavirus (PCR) Stl Adenov F 40/41 PCR Stool Astrovirus (PCR) Stool Campylobacter PCR Stl C.difficile Tox PCR Stool Cryptosporidium PCR Stl E.coli Shiga Tox PCR Stool E coli O157 PCR Stl Enterotoxigenic E PCR Stool EPEC (PCR) Stool EAEC (PCR) Stl E. histolytica PCR Stool Giardia Lamblia PCR Stool Salmonella PCR Stool Sapovirus (PCR) Stl P. shigelloides PCR Stl Shigella/EIEC PCR St Y.enterocolitica PCR Stool Vibrio (PCR) Stl Vibrio cholerae PCR Stl Norovirus GI/GII PCR 02/08/20 02/05/20 07:03 18:00 WBC RBC Hgb Hct MCV MCH MCHC RDW Plt Count MPV Neut % (Auto) Lymph % (Auto) [place] % (Auto) Eos % (Auto) Baso % (Auto) Neut # (Auto) Lymph # (Auto)
[2020-02-09 08:00] VITALS: BP 103/46; PULSE 84; RESP 17; TEMP 36.7; O2SAT 83
--- NOTE | 2020-02-09 08:53 | SW/DCPLANNER ---
HOME 02 SET UP FOR THIS PATIENT TODAY THROUGH [facility]...DISCHARGING HOME, WILL HAVE A PORTABLE DELIVERED TO HER ROOM PRIOR TO LEAVING THE HOSPITAL..
[2020-02-09 09:08] LABS: Anisocytosis 1+; Hypochromasia 1+; Lymphocytes % 16 % (10-50); Monocytes % 3 % (2-9); Neutrophils % 81 % (42-76); Platelet Estimate Marked Increase; Total Cells Counted 100
[2020-02-09 09:42] VITALS: O2SAT 89
--- NOTE | 2020-02-09 09:48 | HMH.ACPN ---
Internal Medicine - PN: Subj *Date: 02/09/20 *Time: 09:48 Exam Vital signs and Labs for Last 24 Hours: Temp Pulse Resp BP Pulse Ox 98.1 F 84 17 103/46 L 89 L 02/09/20 08:00 02/09/20 08:00 02/09/20 08:00 02/09/20 08:00 02/09/20 09:42 Laboratory Results - last 24 hr 02/05/20 18:00: Stl Aeromonas (PCR) Not detected, Stl C. cayetanensis PCR Not detected, Stool Rotavirus (PCR) Not detected, Stl Adenov F 40/41 PCR Not detected, Stool Astrovirus (PCR) Not detected, Stool Campylobacter PCR Not detected, Stl C.difficile Tox PCR Not detected, Stool Cryptosporidium PCR Not detected, Stl E.coli Shiga Tox PCR Not detected, Stool E coli O157 PCR Not detected, Stl Enterotoxigenic E PCR Not detected, Stool EPEC (PCR) Not detected, Stool EAEC (PCR) Not detected, Stl E. histolytica PCR Not detected, Stool Giardia Lamblia PCR Not detected, Stool Salmonella PCR Not detected, Stool Sapovirus (PCR) Not detected, Stl P. shigelloides PCR Not detected, Stl Shigella/EIEC PCR Not detected, St Y.enterocolitica PCR Not detected, Stool Vibrio (PCR) Not detected, Stl Vibrio cholerae PCR Not detected, Stl Norovirus GI/GII PCR Not detected 02/08/20 07:03: Total Counted 100, Neutrophils % (Manual) 91 H, Lymphocytes % (Manual) 8 L, Monocytes % (Manual) 1 L, Platelet Estimate Marked increase, RBC Morphology Normal 02/09/20 06:10: WBC 17.8 H, RBC 3.16 L, Hgb 8.2 L, Hct 27.4 L, MCV 86.6, MCH 26.0 L, MCHC 30.0 L, RDW 18.6 H, Plt Count 610 H, MPV 8.4, Neut % (Auto) 86.2 H, Lymph % (Auto) 9.8 L, Hardy % (Auto) 2.5, Eos % (Auto) 1.2, Baso % (Auto) 0.3, Neut # (Auto) 15.4 H, Lymph # (Auto) 1.8, Hardy # (Auto) 0.5, Eos # (Auto) 0.2, Baso # (Auto) 0.1, Total Counted 100, Neutrophils % (Manual) 81 H, Lymphocytes % (Manual) 16, Monocytes % (Manual) 3, Platelet Estimate Marked increase, Hypochromasia 1+, Anisocytosis 1+ 02/09/20 06:10: Sodium 128 L, Potassium 4.7, Chloride 90 L, Carbon Dioxide 35 H, Anion Gap 7.7, BUN 17, Creatinine 0.60, Estimated Creat Clear 34, Estimated GFR 97, Est GFR ( Amer) 117, Glucose 105 H D, Calcium 8.2 L I & O for Last 24 hours: Intake & Output 02/06/20 02/07/20 02/08/20 02/09/20 23:59 23:59 23:59 23:59 Intake Total 1979 / 1979 1620 / 1620 720 / 720 Output Total 1900 / 2225 1525 / 1525 700 / 700 Balance 80 / -245 95 / 95 Weight 46.522 kg 46.266 kg 46.918 kg 46.918 kg Microbiology Reports for the Last 24 Hours: Microbiology 02/03/20 14:03 Blood Blood Culture - Final NO GROWTH AFTER 5 DAYS Assessment and Plan (1) Pneumonia Status: Acute Qualifiers: Pneumonia type: due to unspecified organism Laterality: left Lung location: lower lobe of lung Qualified Code(s): J18.9 - Pneumonia, unspecified organism Category: Medical Code(s): J18.9 - Pneumonia, unspecified organism (2) Anemia of chronic disease Status: Acute Category: Medical Code(s): D63.8 - Anemia in other chronic diseases classified elsewhere (3) Essential hypertension Status: Acute Category: Medical Code(s): I10 - Essential (primary) hypertension (4) COPD (chronic obstructive pulmonary disease) Status: Acute Category: Medical Code(s): J44.9 - Chronic obstructive pulmonary disease, unspecified (5) Hypokalemia Status: Acute Category: Medical Code(s): E87.6 - Hypokalemia (6) Hyponatremia Status: Acute Category: Medical Code(s): E87.1 - Hypo-osmolality and hyponatremia (7) Chronic neuropathic pain Status: Acute Category: Medical Code(s): M79.2 - Neuralgia and neuritis, unspecified; G89.29 - Other chronic pain The patient's infection will respond to the chosen ABx?: Yes Is the patient receiving the right drug, dose, and route?: Yes Could a more targeted ABx be ordered?: No (WILL CONTINUE LEVAQUIN AT HOME)
== END 2020-02-09 11:55 | disposition home or self-care (01) | DRG 194 ==
LOC: ER 14:37 → 2ND 15:03
PROVIDERS: Admitting Provider Family Medicine; Emergency Provider Emergency Medicine; PCP Family Medicine; Visit Provider Family Medicine
DX: J18.9 Pneumonia, unspecified organism (principal); E87.1 Hypo-osmolality and hyponatremia; J44.9 Chronic obstructive pulmonary disease, unspecified; I10 Essential (primary) hypertension; Z72.0 Tobacco use; D64.9 Anemia, unspecified; E87.6 Hypokalemia; M79.2 Neuralgia and neuritis, unspecified; G89.29 Other chronic pain; Z79.51 Long term (current) use of inhaled steroids; Z79.82 Long term (current) use of aspirin; Z79.899 Other long term (current) drug therapy; Z88.2 Allergy status to sulfonamides; Z88.5 Allergy status to narcotic agent
CPT/HCPCS: 36415; 71045; 71260; 80048; 80053; 81001; 82803; 83605; 83690; 83735; 83880; 84145; 84484; 85007; 85025; 86328; 87040; 87077; 87186; 87506; 87581; 87633; 87798; 93005; 93306; 94640; 96365; 96367; 97110; 97116; 97161; 99285; J0456; J1956; J3370; Q9967